=== PATIENT | male | born 1970 | race Caucasian/White ===

== ENCOUNTER → 2016-12-13 | Outpatient (CLI) | payer MEDICARE, OTHER | LOC: RAD 14:30 | PROVIDERS: ATTEND Urology | DX: C64.1 Malignant neoplasm of right kidney, except renal pelvis (principal) | CPT/HCPCS: 71260; 74160; 82565 ==

== ENCOUNTER 2017-12-05 14:49 | Inpatient (IN) | payer BC, MEDICARE ==
--- NOTE | 2017-12-05 16:28 | ER Document Report ---
ED Medical Screen (RME) - General Chief Complaint: Shortness Of Breath Stated Complaint: SHORTNESS OF BREATH Time Seen by Provider: 12/05/17 16:26 Notes: Patient states he has a history of thyroid tumors and COPD requiring home O2. He states for 2-3 days he has had increased shortness of breath and neck and face swelling. He denies any known injuries. TRAVEL OUTSIDE OF THE [place] IN LAST 30 DAYS: No - Related Data Allergies/Adverse Reactions: morphine [Morphine] Allergy (Verified 02/10/15 11:36) Past Medical History - Past Medical History Cardiac Medical History: Reports: Hx Hypercholesterolemia, Hx Hypertension Pulmonary Medical History: Reports: Hx COPD Neurological Medical History: Reports: Hx Migraine. Denies: Hx Seizures Endocrine Medical History: Reports: Hx Diabetes Mellitus Type 2 Renal/ Medical History: Denies: Hx Peritoneal Dialysis Psychiatric Medical History: Reports: Hx Depression Past Surgical History: Reports: Hx Abdominal Surgery, Hx Kidney (Renal Surgery) - right nephrectomy 2011, Hx Orthopedic Surgery - Neck, thoracic and lumbar fusions - Immunizations Hx Diphtheria, Pertussis, Tetanus Vaccination: Yes Physical Exam - Vital signs Vitals: Temp Pulse Resp BP Pulse Ox 98.4 F 90 14 128/83 H 100 12/05/17 14:53 12/05/17 14:53 12/05/17 14:53 12/05/17 14:53 12/05/17 14:53 Course - Vital Signs Vital signs: Temp Pulse Resp BP Pulse Ox 98.4 F 90 14 128/83 H 100 12/05/17 14:53 12/05/17 14:53 12/05/17 14:53 12/05/17 14:53 12/05/17 14:53
--- NOTE | 2017-12-05 17:11 | RADIOLOGY REPORT (SQ) ---
EXAM DESCRIPTION: CHEST 2 VIEWS COMPLETED DATE/TIME: 12/05/2017 4:59 pm REASON FOR STUDY: sob COMPARISON: None. NUMBER OF VIEWS: Two views. TECHNIQUE: Frontal and lateral radiographic views of the chest acquired. LIMITATIONS: None. FINDINGS: LUNGS AND PLEURA: No opacities, masses or pneumothorax. No pleural effusion. MEDIASTINUM AND HILAR STRUCTURES: No masses or contour abnormality. HEART AND VASCULAR STRUCTURES: Cardiac enlargement. Vascular congestion. BONES: No acute findings. HARDWARE: None in the chest. OTHER: No other significant finding. IMPRESSION: CARDIAC ENLARGEMENT. VASCULAR CONGESTION. TECHNICAL DOCUMENTATION: JOB ID: [id number] [employer]- All Rights Reserved Reading location - IP/workstation name: [email or web address]
[2017-12-05 18:05] LABS: ABSOLUTE EOSINOPHILS # (AUTO) 0.2 10^3/uL (0.0-0.6); ABSOLUTE LYMPHOCYTES (AUTO) 2.1 10^3/uL (0.5-4.7); ABSOLUTE MONOCYTES (AUTO) 0.9 10^3/uL (0.1-1.4); ABSOLUTE NEUT (AUTO) 6.1 10^3/uL (1.7-8.2); BASOPHILS % (AUTO) 0.3 % (0-2); EOSINOPHILS % (AUTO) 2.3 % (0-6); HEMATOCRIT 43.1 % (37.9-51.0); HEMOGLOBIN 15.3 g/dL (13.5-17.0); LYMPHOCYTES % (AUTO) 22.7 % (13-45); MEAN CORPUSCULAR HEMOGLOBIN 32.7 pg (27.0-33.4); MEAN CORPUSCULAR HGB CONC 35.4 g/dL (32.0-36.0); MEAN CORPUSCULAR VOLUME 92 fl (80-97); MONOCYTES % (AUTO) 9.4 % (3-13); PLATELET COUNT 203 10^3/uL (150-450); RED BLOOD COUNT 4.67 10^6/uL (4.35-5.55); SEGMENTED NEUTROPHILS % (AUTO) 65.3 % (42-78); TOTAL CELLS COUNTED % (AUTO) 100 %; WHITE BLOOD COUNT 9.3 10^3/uL (4.0-10.5)
[2017-12-05 18:25] LABS: ALANINE AMINOTRANSFERASE 36 U/L (21-72); ALBUMIN 4.5 g/dL (3.5-5.0); ALKALINE PHOSPHATASE 58 U/L (38-126); ANION GAP 11 (5-19); ASPARTATE AMINO TRANSFERASE 28 U/L (17-59); BILIRUBIN,DIRECT 0.4 mg/dL (0.0-0.4); BILIRUBIN,TOTAL 0.6 mg/dL (0.2-1.3); BLOOD UREA NITROGEN 14 mg/dL (7-20); CALCIUM 9.8 mg/dL (8.4-10.2); CARBON DIOXIDE 35 mmol/L (22-30); CHLORIDE 96 mmol/L (98-107); GLUCOSE 96 mg/dL (75-110); POTASSIUM 3.7 mmol/L (3.6-5.0); TOTAL PROTEIN 7.8 g/dL (6.3-8.2)
--- NOTE | 2017-12-05 19:35 | EKG REPORT ---
SEVERITY:- ABNORMAL ECG - ATRIAL FIBRILLATION, V-RATE 69-144 : Confirmed by: Giorgio Bro MD 05-Dec-2017 19:34:57
[2017-12-05] MEDS ORDERED: FUROSEMIDE 40 MG TABLET PO ONE (19:45)
[2017-12-05 20:20] LABS: FREE T3 4.59 pg/mL (2.77-5.27); FREE T4 (FREE THYROXINE) 1.41 ng/dL (0.78-2.19)
--- NOTE | 2017-12-05 20:36 | RADIOLOGY REPORT (SQ) ---
EXAM DESCRIPTION: CT SOFT TISSUE NECK WITHOUT COMPLETED DATE/TIME: 12/05/2017 8:21 pm REASON FOR STUDY: goiter, painful swallowing COMPARISON: None. TECHNIQUE: Noncontrast scanning from skull base through lung apices with review of bone, soft tissue and lung windows. Reconstructed coronal and sagittal MPR images reviewed. All images stored on PAC S. All CT scanners at this facility use dose modulation, iterative reconstruction, and/or weight based d osing when appropriate to reduce radiation dose to as low as reasonably achievable (ALARA). [facility]: Dose Right [facility]: CareDose [facility]: Dose Right [facility]: Teradose 4D [facility]: [employer] RADIATION DOSE: CT Rad equipment meets quality standard of care and radiation dose reduction techniq ues were employed. CTDIvol: 17.2 mGy. DLP: 709 mGy-cm. mGy. LIMITATIONS: None. FINDINGS: SKULL BASE: Intact. MAJOR SALIVARY GLANDS: No solid or cystic masses. No inflammatory changes. LYMPHADENOPATHY: No adenopathy. MUCOSAL MASSES OR ASYMMETRY: No mucosal masses or asymmetry. LARYNX/CORDS: No abnormal findings. LUNG APICES: Clear. BONES: Postsurgical changes. THYROID: Enlarged thyroid gland with substernal component. No airway compromise. PARANASAL SINUSES: Clear. OTHER: No other significant finding. IMPRESSION: Enlarged thyroid gland. No evidence for airway compromise. TECHNICAL DOCUMENTATION: JOB ID: [id number] Quality ID # [id number]: Final reports with documentation of one or more dose reduction techniques (e.g., Au tomated exposure control, adjustment of the mA and/or kV according to patient size, use of iterative reconstruction technique) 2010 [employer]- All Rights Reserved Reading location - IP/workstation name: [email or web address]
[2017-12-05 20:45] LABS: VENOUS BLOOD BASE EXCESS 4.6 mmol/L; VENOUS BLOOD HCO3 31.5 mmol/L (20-32); VENOUS BLOOD PH 7.38 (7.30-7.42)
[2017-12-05 21:13] LABS: THYROID STIMULATING HORMONE 1.01 uIU/mL (0.47-4.68)
--- NOTE | 2017-12-05 23:16 | ER Document Report ---
ED General - General Chief Complaint: Shortness Of Breath Stated Complaint: SHORTNESS OF BREATH Time Seen by Provider: 12/05/17 16:26 Notes: Patient is a 47-year-old male who presents emergency chief complaint of shortness of breath. Patient states that he has been short of breath every day for the past 2 months but he feels that it is gotten worse over the past couple of days. States he feels more short of breath with palpitations on exertion. Denies any orthopnea. Denies any history of arrhythmias. Patient with a past medical history significant for COPD on 3 L nasal cannula, hypertension, goiter , kidney cancer of the right upper pole status post resection. Patient also complaining of neck discomfort. Patient states that he feels like he cannot swallow, tolerating PO secretions, fluids and solids. Follow with ENT in [place]. PCP: nataliia Singer Neph: mehreen Cardiology: dave TRAVEL OUTSIDE OF THE [place] IN LAST 30 DAYS: No - Related Data Allergies/Adverse Reactions: morphine [Morphine] Allergy (Verified 02/10/15 11:36) Past Medical History - Social History Smoking Status: Never Smoker Family History: Reviewed & Not Pertinent Patient has suicidal ideation: No Patient has homicidal ideation: No - Past Medical History Cardiac Medical History: Reports: Hx Hypercholesterolemia, Hx Hypertension Pulmonary Medical History: Reports: Hx COPD Neurological Medical History: Reports: Hx Migraine. Denies: Hx Seizures Endocrine Medical History: Reports: Hx Diabetes Mellitus Type 2 Renal/ Medical History: Denies: Hx Peritoneal Dialysis Psychiatric Medical History: Reports: Hx Depression Past Surgical History: Reports: Hx Abdominal Surgery, Hx Kidney (Renal Surgery) - right nephrectomy 2011, Hx Orthopedic Surgery - Neck, thoracic and lumbar fusions - Immunizations Hx Diphtheria, Pertussis, Tetanus Vaccination: Yes Review of Systems - Review of Systems Constitutional: Weight gain EENT: See HPI Cardiovascular: See HPI Respiratory: See HPI Gastrointestinal: No symptoms reported Genitourinary: No symptoms reported Musculoskeletal: No symptoms reported Neurological/Psychological: No symptoms reported -: Yes All other systems reviewed and negative Physical Exam - Vital signs Vitals: Temp Pulse Resp BP Pulse Ox 98.4 F 90 14 128/83 H 100 12/05/17 14:53 12/05/17 14:53 12/05/17 14:53 12/05/17 14:53 12/05/17 14:53 - Notes Notes: PHYSICAL EXAM GENERAL: Alert, interacts well. HEAD: Normocephalic, atraumatic. EYES: Pupils equal, round, and reactive to light. Extraocular movements intact. ENT: Oral mucosa moist, tongue midline. NECK: Full range of motion. Supple. Trachea midline. LUNGS: Clear to auscultation bilaterally, no wheezes, rales, or rhonchi. No respiratory distress. HEART: Regular rate wiht irregular rhythm. No murmurs, gallops, or rubs. ABDOMEN: Soft, obese, nondistended, nontender. No guarding, rebound, or rigidity.. Bowel sounds present in all 4 quadrants. EXTREMITIES: Moves all 4 extremities spontaneously. Bilateral edema due to venous stasis, radial and dorsalis pedis pulses 2/4 bilaterally. No cyanosis. NEUROLOGICAL: Alert and oriented x4. Normal speech. PSYCH: Normal affect, normal mood. SKIN: Warm, dry, normal turgor. No rashes or lesions noted. Course - Re-evaluation Re-evalutation: 12/05/17 23:28 Patient is a 47-year-old male who is hemodynamically stable, no acute distress and afebrile. EKG shows evidence of new onset atrial fibrillation. Per chart review not able to identify any other previous diagnoses for atrial fibrillation. Patient at rest is not tachycardic maintaining a heart rate of 90s but when pushed ambulate he does become tachycardic with heart rate of 160s and becomes dyspneic on exertion. Patient without any evidence of chest pain. Low clinical suspicion for ACS given clinical history, exam, EKG without ST elevations or depressions, and negative initial troponin. HEART score less than or equal to 3. PE also seems unlikely given length of clinical history, Well's score of 0. CXR without evidence of pneumothorax or pneumonia. No widened mediastinum. Patient will be admitted for new onset atrial fibrillation to Dr Bradley - Vital Signs Vital signs: Temp Pulse Resp BP Pulse Ox 98.4 F 90 16 154/87 H 97 12/05/17 14:53 12/05/17 14:53 12/05/17 21:29 12/05/17 20:02 12/05/17 20:03 - Laboratory Result Diagrams: 12/05/17 17:40 12/05/17 17:40 Laboratory results interpreted by me: 12/05/17 12/05/17 17:40 17:40 Chloride 96 L Carbon Dioxide 35 H NT-Pro-B Natriuret Pep 955 H - Diagnostic Test Radiology reviewed: Image reviewed, Reports reviewed - EKG Interpretation by Me Rate: Normal Rhythm: A.Fib When compared to previous EKG there are: Changes noted Discharge - Discharge Clinical Impression: Morbid obesity Atrial fibrillation Qualifiers: Atrial fibrillation type: unspecified Qualified Code(s): I48.91 - Unspecified atrial fibrillation Condition: Stable Disposition: ADMITTED INPATIENT Admitting Provider: Hospitalist Unit Admitted: Telemetry Referrals: NATALIIA SINGER MD [Primary Care Provider] - Follow up as needed
[2017-12-05] MEDS ORDERED: PROMETHAZINE HCL INJ 25 MG/1 ML VIAL IV PRN (23:21)
[2017-12-05] MEDS ORDERED: ALBUTEROL SULFATE 0.083% NEB 2.5 MG/3 ML AMPUL NEB PRN (23:21)
[2017-12-05] MEDS ORDERED: DILTIAZEM HCL/D5W 125 MG/125 ML RTUINJ IV ONE (23:56)
[2017-12-06] MEDS: ACETAMINOPHEN 325 MG TABLET PO PRN ×4 (00:05→20:18)
[2017-12-06] MEDS ORDERED: LORAZEPAM 0.5 MG TABLET PO ONE (00:30)
[2017-12-06] MEDS ORDERED: TIZANIDINE HCL 4 MG TABLET PO ONE (00:30)
[2017-12-06] MEDS ORDERED: OXYCODONE HCL IR 5 MG TABLET PO ONE (00:30)
[2017-12-06] MEDS ORDERED: FUROSEMIDE INJ/PF 40 MG/4 ML SDV IV ONE (01:00)
--- NOTE | 2017-12-06 02:14 | PDOC H&P ---
History of Present Illness Admission Date/PCP: CARSON SINGER MD Patient complains of: Intermittent chest pain and worsening shortness of breath for the last 4 days. He was in A. fib with RVR with HR up to 150s while in the ED. History of Present Illness: CATHERINE NOVOA is a 47 year old morbidly obese male with history of chronic respiratory failure/COPD (on 3 L home oxygen), obstructive sleep apnea (unable to tolerate CPAP), renal carcinoma (post partial right nephrectomy), hypertension and chronic back/neck pain (opioids dependent) was admitted with above-mentioned complaints. Some of the history was obtained from his at bedside. The patient complains of intermittent chest pain which he describes as pressure- like/stabbing, nonradiating and lasting for few minutes. The last time he had chest pain was at 4 PM prior to coming to the hospital. There were no alleviating or relieving factors. The pain was associated with shortness of breath, palpitations, diaphoresis and presyncope but no nausea or vomiting. And according to his , the patient has been having increased leg swelling for the last month or so (left more than right). He has two-pillow orthopnea, PND and his exercise tolerance is very limited by his shortness of breath. There was no report of any fever or chills but he has been complaining of nonproductive cough, no sick contact. The patient apparently follows with Dr. Bro of cardiology. He is scheduled to have an echocardiogram as outpatient for further evaluation of his worsening shortness of breath. He had a Holter monitor on 07/07/2016 assess PVCs. It only showed PACs/PVCs but no atrial tachycardia or A. fib. In the ED, his temperature was 98.4, heart rate 90 (up to 150s), respiratory rate 14, blood pressure 128/83 with oxygen saturation of 100% on 3 L nasal cannula. His WBC was 9.3 with hemoglobin of 15.3. His initial troponin was negative and his proBNP was 955. A CXR was done which showed vascular congestion. He also had a CAT scan of his neck which showed thyromegaly with no airway compromise. He received 40 mg oral Lasix 1, 15 mg IV Cardizem and he was started on Cardizem drip at 5 mg/h. Past Medical History Medical History: Other - According to the patient and based on previous records. Cardiac Medical History: Reports: Hyperlipidema, Hypertension Pulmonary Medical History: Reports: Chronic Obstructive Pulmonary Disease (COPD ) - On 3 L home oxygen., Sleep Apnea - To tolerate CPAP. Neurological Medical History: Reports: Migraine Denies: Seizures Malignancy Medical History: Reports: Renal (Kidney) Cancer Psychiatric Medical History: Reports: Depression Hematology: Denies: Anemia Past Surgical History Past Surgical History: Reports: Orthopedic Surgery - cervical surgery x1, thoracic and lumbar fusions x3., Other - Right partial nephrectomy (cancer). Social History Smoking Status: Never Smoker Frequency of Alcohol Use: None Hx Recreational Drug Use: No - Advance Directive Resuscitation Status: Full Code Family History Parental Family History Reviewed: Yes - Mother: CHF and diabetes Children Family History Reviewed: No Sibling(s) Family History Reviewed.: Yes Medication/Allergy Home Medications: Fluoxetine HCl [Prozac 20 mg Capsule] 40 mg PO DAILY 11/06/13 Lorazepam 2 mg PO BID 11/06/13 Quetiapine Fumarate [Seroquel] 100 mg PO DAILY 11/06/13 Amlodipine Besylate [Norvasc 10 mg Tablet] 10 mg PO DAILY 05/03/14 Metoprolol Tartrate [Lopressor 50 mg Tablet] 100 mg PO DAILY 05/03/14 Valsartan [Diovan] 320 mg PO DAILY 05/03/14 Amitriptyline HCl [Elavil 50 Mg Tablet] 50 mg PO BID 02/04/15 Tapentadol HCl [Nucynta] 75 mg PO BID 02/04/15 Fenofibrate 160 mg PO DAILY 04/29/15 Tapentadol HCl [Nucynta ER] 100 mg PO BID 04/29/15 Tizanidine HCl 8 mg PO QAM 04/29/15 Tizanidine HCl [Zanaflex] 12 mg PO QHS 04/29/15 Allergies/Adverse Reactions: morphine [Morphine] Allergy (Verified 02/10/15 11:36) Review of Systems ROS unobtainable: Other - Pertinent positives and negatives as per HPI. The patient denies any abdominal pain or diarrhea but complains of chronic constipation. He also denies any dysuria or hematuria but complains of urgency. He also complains of generalized weakness especially arms more than legs. He is able to ambulate independently. Physical Exam Vital Signs: Temp Pulse Resp BP Pulse Ox 98.4 F 90 16 154/87 H 97 12/05/17 14:53 12/05/17 14:53 12/05/17 21:29 12/05/17 20:02 12/05/17 20:03 Intake & Output 12/04/17 12/05/17 12/06/17 06:59 06:59 06:59 Weight 148 kg General appearance: PRESENT: no acute distress, obese, well-developed, well- nourished Head exam: PRESENT: atraumatic, normocephalic Eye exam: PRESENT: PERRLA. ABSENT: nystagmus Mouth exam: PRESENT: moist, neck supple Neck exam: PRESENT: full ROM, thyromegaly. ABSENT: JVD Respiratory exam: PRESENT: decreased breath sounds, rales. ABSENT: rhonchi, wheezes Cardiovascular exam: PRESENT: irregular rhythm, +S1, +S2, tachycardia Pulses: PRESENT: normal dorsalis pedis pul GI/Abdominal exam: PRESENT: distended, normal bowel sounds, soft. ABSENT: rebound, tenderness Rectal exam: PRESENT: deferred Extremities exam: PRESENT: pedal edema, +2 edema Musculoskeletal exam: PRESENT: other - Able to move all 4 extremities. Neurological exam: PRESENT: alert, altered, awake, CN II-XII grossly intact - except CNIII.. ABSENT: motor sensory deficit Skin exam: PRESENT: erythema - Bilateral legs erythema from ankle up to knees bilaterally., intact, warm. ABSENT: rash Results Laboratory Results: 12/05/17 17:40 12/05/17 17:40 12/05/17 12/05/17 12/05/17 17:40 17:40 17:40 WBC 9.3 RBC 4.67 Hgb 15.3 Hct 43.1 MCV 92 MCH 32.7 MCHC 35.4 RDW 13.0 Plt Count 203 Seg Neutrophils % 65.3 Lymphocytes % 22.7 Monocytes % 9.4 Eosinophils % 2.3 Basophils % 0.3 Absolute Neutrophils 6.1 Absolute Lymphocytes 2.1 Absolute Monocytes 0.9 Absolute Eosinophils 0.2 Absolute Basophils 0.0 VBG pH VBG pCO2 VBG HCO3 VBG Base Excess Sodium 142.0 Potassium 3.7 Chloride 96 L Carbon Dioxide 35 H Anion Gap 11 BUN 14 Creatinine 1.11 Est GFR ( Amer) > 60 Est GFR (Non-Af Amer) > 60 Glucose 96 Calcium 9.8 Total Bilirubin 0.6 AST 28 ALT 36 Alkaline Phosphatase 58 Total Protein 7.8 Albumin 4.5 TSH 1.01 Free T4 1.41 Free T3 pg/mL 4.59 12/05/17 20:30 WBC RBC Hgb Hct MCV MCH MCHC RDW Plt Count Seg Neutrophils % Lymphocytes % Monocytes % Eosinophils % Basophils % Absolute Neutrophils Absolute Lymphocytes Absolute Monocytes Absolute Eosinophils Absolute Basophils VBG pH 7.38 VBG pCO2 55.0 VBG HCO3 31.5 VBG Base Excess 4.6 Sodium Potassium Chloride Carbon Dioxide Anion Gap BUN Creatinine Est GFR ( Amer) Est GFR (Non-Af Amer) Glucose Calcium Total Bilirubin AST ALT Alkaline Phosphatase Total Protein Albumin TSH Free T4 Free T3 pg/mL 12/05/17 12/05/17 12/05/17 17:40 17:40 21:30 Troponin I < 0.012 < 0.012 NT-Pro-B Natriuret Pep 955 H EKG Comments: Twelve-lead EKG, A. fib, ventricular rate 95, axis 0, QTC prolongation, no acute changes. Compared to a previous twelve-lead EKG done on 04/29/2015, sinus rhythm, ventricular rate 95, [place] 0, first-degree AV block, no acute changes. Impressions: Chest X-Ray 12/05/17 16:26 IMPRESSION: CARDIAC ENLARGEMENT. VASCULAR CONGESTION. Soft Tissue Neck CT 12/05/17 19:49 IMPRESSION: Enlarged thyroid gland. No evidence for airway compromise. Assessment & Plan - Diagnosis (1) Acute CHF (congestive heart failure) Qualifiers: Heart failure type: unspecified Qualified Code(s): I50.9 - Heart failure, unspecified Is this a current diagnosis for this admission?: Yes Plan: Will cycle cardiac enzymes and check d-dimer and echocardiogram. The patient's last echocardiogram done on 07/07/2016 showed mild and mild concentric left ventricular hypertrophy with normal LVEF, no diastolic dysfunction. He also had a Holter monitor which only showed PACs/PVCs (no A. fib). Will continue 60 mg IV Lasix BID with strict I's and O's. Will order CAT scan angiogram of the chest if his d-dimer is positive and will also check bilateral lower extremity venous Dopplers to rule out DVT. (2) Atrial fibrillation with RVR Is this a current diagnosis for this admission?: Yes Plan: New and/or paroxysmal in the setting of CHF exacerbation. His [id number] - Vasc score is 2. Will continue Cardizem drip. He may need to be anticoagulated. Of note, his neck CAT scan showed thyromegaly for which he was seen by endocrinology in [facility] per his but no thyroid biopsy was done. Will check TSH. Further management as detailed above. (3) Essential hypertension Is this a current diagnosis for this admission?: Yes Plan: Controlled. The patient is currently on Cardizem drip. (4) Chronic respiratory failure Qualifiers: Respiratory failure complication: hypoxia and hypercapnia Qualified Code(s) : J96.11 - Chronic respiratory failure with hypoxia; J96.12 - Chronic respiratory failure with hypercapnia; J96.12 - Chronic respiratory failure with hypercapnia; J96.12 - Chronic respiratory failure with hypercapnia Is this a current diagnosis for this admission?: Yes Plan: /COPD. He is not on any inhalers at home. Further assessment with PFTs can be done as outpatient once acute illness resolved. (5) Obstructive sleep apnea Is this a current diagnosis for this admission?: No Plan: Unable to tolerate CPAP. - Time Time Spent: Greater than 70 Minutes - Inpatient Certification Based on my medical assessment, after consideration of the patient's comorbidities, presenting symptoms, or acuity I expect that the services needed warrant INPATIENT care.: Yes I certify that my determination is in accordance with my understanding of Medicare's requirements for reasonable and necessary INPATIENT services [42 CFR 412.3e].: Yes
--- NOTE | 2017-12-06 03:35 | RADIOLOGY REPORT (SQ) ---
EXAM DESCRIPTION: CTA CHEST CLINICAL HISTORY: 47 years Male, Afib with RVR/SOB, DDIMER 0.63 COMPARISON: 07/02/2016. CR, 12/05/2017. Thyroid ultrasound report, 11/10/2015. TECHNIQUE: IV contrast. Multiplanar reformat. This exam was performed according to our departmental dose-optimization program, which includes automated exposure control, adjustment of the mA and/or kV according to patient size and/or use of iterative reconstruction technique. Limitation: As below. FINDINGS: No evidence of pulmonary embolus; suboptimal pulmonary arterial enhancement measures 144 HU. No right ventricular strain. Partially imaged left inferior thyroid enlargement/lesion measures at least 3.4 x 5.1 cm asymmetrically enlarged compared to the right possibly increased compared with prior ultrasound and CT reports from 2016. Current thyroid sonogram recommended. Small bilateral pulmonary calcified granulomata. Cervical hardware fusion. 3.8 cm subpleural emphysematous cyst at the right lung base. 1.1 cm right adrenal adenoma. Axillae, mediastinum, lungs, airway, lymphatics, heart, vasculature, upper abdomen, and musculoskeleton appear otherwise unremarkable. Impression: 1. Possible interval left thyroid enlargement. Thyroid sonogram recommended. 2. No acute cardiopulmonary findings. No pulmonary embolus. Limitation.
[2017-12-06 04:21] LABS: ANION GAP 17 (5-19); BLOOD UREA NITROGEN 16 mg/dL (7-20); CALCIUM 9.6 mg/dL (8.4-10.2); CARBON DIOXIDE 30 mmol/L (22-30); CHLORIDE 96 mmol/L (98-107); CHOLESTEROL 230.15 mg/dL (0-200); GLUCOSE 153 mg/dL (75-110); POTASSIUM 3.6 mmol/L (3.6-5.0); SODIUM 143.4 mmol/L (137-145); TRIGLYCERIDES 185 mg/dL (<150)
[2017-12-06] MEDS ORDERED: NORMAL SALINE 1000 ML 250 ML IV ONE ×2 (04:30→05:37)
[2017-12-06 04:31] LABS: DIRECT LDL 147 mg/dL (<100)
[2017-12-06] MEDS ORDERED: DEXTROSE 5%-WATER 250 ML with NOREPINEPHRINE BITARTRATE 4 MG IV PRN ×2 (05:47)
[2017-12-06] MEDS ORDERED: NOREPINEPHRINE BITARTRATE INJ/PF 4 MG/4 ML SDV IV ONE (05:52)
[2017-12-06] MEDS ORDERED: FUROSEMIDE INJ/PF 20 MG/2 ML SDV IV SCH (06:00)
[2017-12-06] MEDS ORDERED: FUROSEMIDE INJ/PF 40 MG/4 ML SDV IV SCH (06:00)
[2017-12-06] MEDS: LORAZEPAM 0.5 MG TABLET PO SCH ×3 (07:23→22:29)
[2017-12-06] MEDS: HEPARIN SOD (PORCINE) 5,000 UNIT/ML 1 ML SYRINGE SUBCUT SCH ×3 (07:26→22:29)
--- NOTE | 2017-12-06 07:45 | EKG REPORT ---
SEVERITY:- ABNORMAL ECG - ATRIAL FIBRILLATION, V-RATE 75-130 VENTRICULAR PREMATURE COMPLEX NONSPECIFIC T ABNORMALITIES, INFERIOR LEADS : Confirmed by: Giorgio Bro MD 06-Dec-2017 07:44:33
[2017-12-06] MEDS ORDERED: OXYCODONE HCL IR 5 MG TABLET PO SCH (10:00)
[2017-12-06] MEDS: FUROSEMIDE INJ/PF 40 MG/4 ML SDV IV SCH ×2 (10:11→17:21)
[2017-12-06] MEDS: TIZANIDINE HCL 4 MG TABLET PO SCH ×3 (10:11→17:21)
[2017-12-06] MEDS ORDERED: POTASSIUM CHLORIDE 10 MEQ TABLET.SA PO ONE (12:03)
--- NOTE | 2017-12-06 12:07 | PDOC PROGRESS REPORT ---
Subjective Progress Note for:: 12/06/17 Subjective:: The patient is resting in his bed. He was weaned off of his levo fed this morning and his Cardizem drip had been stopped. When I went in to see the patient his heart rate was fluctuating between the 120s in the 160s. We are going to cautiously try the Cardizem drip again. Otherwise he is doing well off of oxygen. His shortness of breath is improved. He has had no fever chills. He states that he does get chest pressure and pain when he gets up and ambulates but it does resolve with rest. He has had no nausea vomiting diaphoresis. No abdominal pain. He has not had a bowel movement yet this morning. No voiding complaints. Reason For Visit: A FIB WITH RVR/SOB. Physical Exam Vital Signs: Temp Pulse Resp BP Pulse Ox 98.4 F 90 14 108/65 97 12/05/17 14:53 12/05/17 14:53 12/06/17 11:15 12/06/17 11:15 12/06/17 11:15 Intake & Output 12/05/17 12/06/17 12/07/17 06:59 06:59 06:59 Output Total 1625 900 Balance -1625 -900 General appearance: PRESENT: no acute distress, morbidly obese, well-developed, well-nourished Head exam: PRESENT: atraumatic, normocephalic Mouth exam: PRESENT: moist, tongue midline Respiratory exam: PRESENT: clear to auscultation juan josé, other - He is diminished in the lower bases bilaterally. ABSENT: rales, rhonchi, wheezes Cardiovascular exam: PRESENT: RRR. ABSENT: diastolic murmur, rubs, systolic murmur GI/Abdominal exam: PRESENT: firm, normal bowel sounds, organolmegaly - I could not assess for organomegaly due to the patient's body habitus, other - His abdomen is morbidly obese.. ABSENT: distended, guarding, mass, rebound, tenderness Rectal exam: PRESENT: deferred Extremities exam: PRESENT: other - He has significant venous stasis changes to both of his bilateral lower extremities. There is no calf tenderness. He has significant pedal edema but it is not particularly Musculoskeletal exam: PRESENT: ambulatory - pitting. Neurological exam: PRESENT: alert, awake, oriented to person, oriented to place , oriented to time, oriented to situation, CN II-XII grossly intact. ABSENT: motor sensory deficit Skin exam: PRESENT: dry, intact, warm. ABSENT: cyanosis, rash Results Laboratory Results: 12/06/17 03:30 12/06/17 03:30 Sodium 143.4 Potassium 3.6 Chloride 96 L Carbon Dioxide 30 Anion Gap 17 BUN 16 Creatinine 1.18 Est GFR ( Amer) > 60 Est GFR (Non-Af Amer) > 60 Glucose 153 H Calcium 9.6 Magnesium 1.5 L Triglycerides 185 H Cholesterol 230.15 H LDL Cholesterol Direct 147 H VLDL Cholesterol 37.0 H HDL Cholesterol 32 L 12/06/17 03:30 Troponin I < 0.012 Impressions: Chest X-Ray 12/05/17 16:26 IMPRESSION: CARDIAC ENLARGEMENT. VASCULAR CONGESTION. Soft Tissue Neck CT 12/05/17 19:49 IMPRESSION: Enlarged thyroid gland. No evidence for airway compromise. Assessment & Plan - Diagnosis (1) Atrial fibrillation with RVR Is this a current diagnosis for this admission?: Yes Plan: We are going to cautiously place him back on a Cardizem drip this morning. We will keep a close eye on his blood pressure. He has been weaned off his Levophed at this point. Cardiology has been consulted. We look forward to their recommendations. In the meantime he has hypomagnesemia and going to replete with 3 g of magnesium sulfate. I would like to keep his magnesium level above 2. His potassium is 3.6. I would like to keep it above 4. He will be given a one-time dose of 40 mEq of potassium as well. (2) Acute CHF (congestive heart failure) Qualifiers: Heart failure type: unspecified Qualified Code(s): I50.9 - Heart failure, unspecified Is this a current diagnosis for this admission?: Yes Plan: I suspect the patient has some right-sided heart failure issues. He has known untreated obstructive sleep apnea and states that he just cannot tolerate his mask. He had an echocardiogram in 2016 which revealed normal LV function. No evidence of diastolic dysfunction at that time. He was noted to have mild aortic stenosis as well as mild pulmonary hypertension which I suspect is gotten worse. I will hold off on further diuresis right now as he does not sound horrible on exam. I do not want to have to put him back on pressors. I have consulted Dr. Pena for his recommendations and a 2D echocardiogram has been ordered. (3) Hypotension Is this a current diagnosis for this admission?: Yes Plan: The patient was hypotensive requiring pressors which have since been weaned off. Currently his diastolic blood pressure is quite high. He is being placed back on his Cardizem drip and the nurse has an order to restart his levophed if he should become hypotensive. Cardiology has been consulted (4) Pulmonary hypertension Is this a current diagnosis for this admission?: Yes Plan: The patient had mild pulmonary hypertension on echocardiogram in 2016. This could be contributing to his shortness of breath. His obstructive sleep apnea is not treated. 2D echocardiogram has been ordered. (5) Aortic stenosis Is this a current diagnosis for this admission?: Yes Plan: Per echocardiogram in 2016 the patient had mild aortic stenosis. This is somewhat concerning with his hypertensive picture. Repeat cardiac echo has been ordered and Dr. Pena has been consulted (6) Hypertensive emergency Is this a current diagnosis for this admission?: Yes Plan: Possibly contributing to his CHF. Blood pressures were as high as 183/152. After being started on his Cardizem drip and diuresed with IV Lasix he then became hypotensive. He seems to have quite labile blood pressure at this point. (7) Obstructive sleep apnea Is this a current diagnosis for this admission?: Yes Plan: He states he does not tolerate his mask. I have asked the to bring in his machine so that we can find out what his settings were. I will have respiratory therapy try to work with the patient while he is here in the hospital to get him to tolerate his CPAP better. (8) Thyroid nodule Is this a current diagnosis for this admission?: Yes Plan: Noted on imaging studies. I am not sure whether this could be contributing to his tachycardia. Thyroid function tests are normal. We will obtain an ultrasound of the thyroid for further evaluation. (9) Morbid obesity Is this a current diagnosis for this admission?: Yes Plan: Dietary discretion is advised (10) Dyslipidemia Is this a current diagnosis for this admission?: Yes Plan: I will start the patient on a low-dose statin medication. (11) Opiate dependence, continuous Is this a current diagnosis for this admission?: Yes Plan: The patient takes 10 mg of oxycodone at home every 8 hours on a scheduled basis. We will continue his home regimen here in the hospital. I am not going to escalate it. He also is on a Butrans patch which will be continued as well (12) Chronic prescription benzodiazepine use Is this a current diagnosis for this admission?: Yes Plan: He will continue his home dose of lorazepam (13) Hypomagnesemia Is this a current diagnosis for this admission?: Yes Plan: Again this will be repleted with magnesium sulfate today. He will have a magnesium level drawn in the morning. - Time Time Spent with patient: 35 or more minutes - Inpatient Certification Medical Necessity: Need Close Monitoring Due to Risk of Patient Decompensation, Need For Continuous Telemetry Monitoring, Other - Inpatient hospitalization remains necessary. This patient has labile blood pressure. He may need to be placed back on pressors again. He continues to have atrial fibrillation with rapid ventricular response and we are going to place him back on a Cardizem drip. He needs evaluation by cardiology. I suspect he will be in the hospital for the next several days.
[2017-12-06] MEDS ORDERED: HYDRALAZINE HCL INJ/PF 20 MG/1 ML SDV IV PRN (12:12)
[2017-12-06 12:43] LABS: HEMATOCRIT 43.6 % (37.9-51.0); HEMOGLOBIN 15.2 g/dL (13.5-17.0); MEAN CORPUSCULAR HEMOGLOBIN 32.1 pg (27.0-33.4); MEAN CORPUSCULAR HGB CONC 34.9 g/dL (32.0-36.0); MEAN CORPUSCULAR VOLUME 92 fl (80-97); PLATELET COUNT 201 10^3/uL (150-450); RED BLOOD COUNT 4.74 10^6/uL (4.35-5.55); RED CELL DISTRIBUTION WIDTH 13.4 % (11.5-14.0); WHITE BLOOD COUNT 8.3 10^3/uL (4.0-10.5)
[2017-12-06] MEDS: MAGNESIUM SULFATE/D5W 1 GM/100 ML RTUPB IV SCH ×3 (13:03→16:16)
[2017-12-06] MEDS: OXYCODONE HCL IR 5 MG TABLET PO PRN (16:16)
[2017-12-06] MEDS: DILTIAZEM HCL/D5W 125 MG/125 ML RTUINJ IV PRN (16:43)
--- NOTE | 2017-12-06 20:22 | PDOC CONSULTATION ---
Consultation Consult Date: 12/06/17 Attending physician:: SILVIA CAGE Consult reason:: Atrial fibrillation History of Present Illness Admission Date/PCP: 12/05/17 23:28 CASRON SINGER MD Patient complains of: Shortness of breath, fatigue and tiredness History of Present Illness: CATHERINE NOVOA is a 47 year old morbidly obese male with history of chronic respiratory failure/COPD (on 3 L home oxygen), obstructive sleep apnea (unable to tolerate CPAP), renal carcinoma (post partial right nephrectomy), hypertension and chronic back/neck pain (opioids dependent) was admitted with above-mentioned complaints. Some of the history was obtained from his at bedside. The patient complains of intermittent chest pain which he describes as pressure- like/stabbing, nonradiating and lasting for few minutes. The last time he had chest pain was at 4 PM prior to coming to the hospital. There were no alleviating or relieving factors. The pain was associated with shortness of breath, palpitations, diaphoresis and presyncope but no nausea or vomiting. And according to his , the patient has been having increased leg swelling for the last month or so (left more than right). He has two-pillow orthopnea, PND and his exercise tolerance is very limited by his shortness of breath. There was no report of any fever or chills but he has been complaining of nonproductive cough, no sick contact. The patient apparently follows with Dr. Bro of cardiology. He is scheduled to have an echocardiogram as outpatient for further evaluation of his worsening shortness of breath. He had a Holter monitor on 07/07/2016 assess PVCs. It only showed PACs/PVCs but no atrial tachycardia or A. fib. In the ED, his temperature was 98.4, heart rate 90 (up to 150s), respiratory rate 14, blood pressure 128/83 with oxygen saturation of 100% on 3 L nasal cannula. His WBC was 9.3 with hemoglobin of 15.3. His initial troponin was negative and his proBNP was 955. A CXR was done which showed vascular congestion. He also had a CAT scan of his neck which showed thyromegaly with no airway compromise. He received 40 mg oral Lasix 1, 15 mg IV Cardizem and he was started on Cardizem drip at 5 mg/h. This history was reviewed and confirmed. Patient at this point denying any chest pain. Patient claims that after he was given certain medication to control his heart rate, he had transient drop in blood pressure. Patient was seen in the emergency room. Past Medical History Cardiac Medical History: Reports: Hyperlipidema, Hypertension Pulmonary Medical History: Reports: Chronic Obstructive Pulmonary Disease (COPD ) - On 3 L home oxygen., Sleep Apnea - To tolerate CPAP. Neurological Medical History: Reports: Migraine Denies: Seizures Endocrine Medical History: Reports: Diabetes Mellitus Type 2 Malignancy Medical History: Reports: Renal (Kidney) Cancer Psychiatric Medical History: Reports: Depression Hematology: Denies: Anemia Past Surgical History Past Surgical History: Reports: Orthopedic Surgery - cervical surgery x1, thoracic and lumbar fusions x3., Other - Right partial nephrectomy (cancer). Social History Information Source: Patient Smoking Status: Never Smoker Frequency of Alcohol Use: None Hx Recreational Drug Use: No - Advance Directive Resuscitation Status: Full Code Family History Family History: Hypertension Parental Family History Reviewed: Yes Children Family History Reviewed: Yes Sibling(s) Family History Reviewed.: Yes Medication/Allergy Home Medications: Buprenorphine [Butrans] 15 mcg TOP WE@0800 12/06/17 Chlorthalidone [Chlorthalidone 25 mg Tablet] 25 mg PO DAILY 12/06/17 Furosemide [Lasix 20 mg Tablet] 20 mg PO DAILY 12/06/17 Linaclotide [Linzess] 145 mcg PO DAILY 12/06/17 Lisinopril [Prinivil 40 mg Tablet] 40 mg PO DAILY 12/06/17 Lorazepam [Ativan 0.5 mg Tablet] 0.5 mg PO Q8HP PRN 12/06/17 Nifedipine [Nifedipine ER] 30 mg PO DAILY 12/06/17 Oxycodone HCl [Oxycodone HCl 10 MG Tablet] 10 mg PO Q8HP PRN 12/06/17 Tizanidine HCl [Zanaflex 4 mg Tablet] 4 mg PO Q8HP PRN 12/06/17 Allergies/Adverse Reactions: morphine [Morphine] Allergy (Verified 12/06/17 08:30) Review of Systems Review of Systems: Please see history of present illness and past medical history as wall. Constitutional: No fever or chills reported. Head : No recent chronic headaches, recent head injury. Eyes: No recent eye pain, diplopia, redness, discharge, acute visual changes. Ears: No recent chronic ear pain, acute hearing loss, ear discharge. Oral cavity: No recent ulcerations, bleeding, oral cavity discomfort. Neck: No recent acute neck pain reported. Hematologic: No recent easy bruising or bleeding. Lymphatic: No recent lymph node enlargement reported. Cardiovascular system review: See history of present illness. Respiratory system review: Cough with occasional wheezing described. No hemoptysis or blood clots in the lungs reported. Shortness of breath on exertion Gastrointestinal system review: Negative for any recent acute hematemesis, melena. Genitourinary system review: No recent acute or chronic hematuria, flank pain, UTI etc. reported. Skin system review: Negative for any recent abnormal bruising, no rash, no pruritus reported. Neurologic: No prior history of strokes, mini strokes, seizure disorder. Psychologic: No history of major psychosis or major depression reported. Musculoskeletal: Minor aches and pains reported. No acute joint swelling reported. Endocrine: No recent polyuria, polydipsia, recent heat or cold intolerance. Gives history of renal cancer and status post partial nephrectomy. Describes history of sleep apnea but not on CPAP therapy. Physical Exam Vital Signs: Temp Pulse Resp BP Pulse Ox 98.4 F 90 26 H 122/76 98 12/05/17 14:53 12/05/17 14:53 12/06/17 13:00 12/06/17 12:15 12/06/17 13:00 Intake & Output 12/05/17 12/06/17 12/07/17 06:59 06:59 06:59 Output Total 1625 1300 Balance -1625 -1300 Exam: GENERAL: well-nourished and in no acute distress. Alert and oriented x3 HEAD: Atraumatic, normocephalic. EYES: Pupils equal round and reactive to light, extraocular movements intact, sclera anicteric, conjunctiva are normal. ENT: TMs normal, nares patent, oropharynx clear without exudates. Moist mucous membranes. No oral ulcerations or bleeding gums noted NECK: supple without lymphadenopathy. Trachea is central. No cervical or axillary lymphadenopathy noted. Carotids are 2+, JVD WNL LUNGS: Respiration seems nonlabored, no significant accessory muscle action noted. Bibasilar fine crackles with few a scattered wheezes rales or rhonchi noted. No significant dullness noted on percussion. CHEST: Palpation of the chest wall shows no significant chest wall tenderness. HEART: [place] BUTTONER, No PSH, 1/6 ANDRES aortic area, 1/6 jeffery systolic murmur mitral area, no rubs, no gallops. ABDOMEN: Soft, no significant tenderness appreciated, normoactive bowel sounds. No guarding, no rebound. No rigidity noted . No masses appreciated. EXTREMITIES: Pedal pulses are 1-2+, no calf tenderness noted. No clubbing or cyanosis. 1+ pedal edema noted NEUROLOGICAL: Focused neurological exam showed no significant neurologic deficit. Normal speech, no focal weakness appreciated. PSYCH: Normal mood, normal affect. Judgment and insight within normal limits. SKIN: No significant ecchymosis, skin is noted to be warm. MUSCULOSKELETAL EXAM: No significant acute joint swelling noted. Results Laboratory Results: 12/06/17 12:25 12/06/17 03:30 12/06/17 12/06/17 03:30 12:25 WBC 8.3 RBC 4.74 Hgb 15.2 Hct 43.6 MCV 92 MCH 32.1 MCHC 34.9 RDW 13.4 Plt Count 201 Sodium 143.4 Potassium 3.6 Chloride 96 L Carbon Dioxide 30 Anion Gap 17 BUN 16 Creatinine 1.18 Est GFR ( Amer) > 60 Est GFR (Non-Af Amer) > 60 Glucose 153 H Calcium 9.6 Magnesium 1.5 L Triglycerides 185 H Cholesterol 230.15 H LDL Cholesterol Direct 147 H VLDL Cholesterol 37.0 H HDL Cholesterol 32 L 12/06/17 12/06/17 03:30 12:25 Troponin I < 0.012 < 0.012 EKG Comments: Atrial fibrillation, no acute ST-T wave changes noted. Heart rate noted to be 95 on the EKG. Impressions: Chest X-Ray 12/05/17 16:26 IMPRESSION: CARDIAC ENLARGEMENT. VASCULAR CONGESTION. Soft Tissue Neck CT 12/05/17 19:49 IMPRESSION: Enlarged thyroid gland. No evidence for airway compromise. Assessment & Plan - Diagnosis (1) Acute CHF (congestive heart failure) Qualifiers: Heart failure type: unspecified Qualified Code(s): I50.9 - Heart failure, unspecified Is this a current diagnosis for this admission?: Yes (2) Atrial fibrillation with RVR Is this a current diagnosis for this admission?: Yes (3) Chronic respiratory failure Qualifiers: Respiratory failure complication: hypoxia and hypercapnia Qualified Code(s) : J96.11 - Chronic respiratory failure with hypoxia; J96.12 - Chronic respiratory failure with hypercapnia; J96.12 - Chronic respiratory failure with hypercapnia; J96.12 - Chronic respiratory failure with hypercapnia Is this a current diagnosis for this admission?: Yes (4) Dyslipidemia Is this a current diagnosis for this admission?: Yes (5) Morbid obesity Is this a current diagnosis for this admission?: Yes (6) Obstructive sleep apnea Is this a current diagnosis for this admission?: Yes - Notes Notes: Acute congestive heart failure: Most likely related to diastolic dysfunction and being precipitated by atrial fibrillation. Chest x-ray does show mild cardiomegaly. A 2D echocardiogram will be important in further evaluation and management of CHF. This will be ordered. At this point agree with IV diuretics. Atrial fibrillation with rapid ventricular response: Agree with what controlled with either beta blockers or calcium channel lora such as Cardizem. May also use digoxin especially if hypotension is a problem. At this point recommend Lovenox or heparin for anticoagulation. Chronic anticoagulation to be decided based on 2D echo and further evaluation. Chronic respiratory failure: Patient seems to have this based on obesity hypoventilation and also severe sleep apnea syndrome which patient claims he is not being treated. Continue with oxygen supplementation. Patient claims he has oxygen at home. Dyslipidemia: Recommend statin therapy with LDL goal of 70 or less. Morbid obesity: Patient will benefit from significant weight loss. Obstructive sleep apnea: Patient will greatly benefit from therapy for obstructive sleep apnea. Patient may be able to be desensitized while in hospital towards CPAP therapy. - Time Time Spent: 30 to 50 Minutes - CODE STATUS was discussed, patient remains full code. Surrogate decision-maker unchanged. Multiple medical problems were addressed. More than 50% of the time spent coordinating care, discussing management plans with involved caregivers. Management plans discussed with involved personnels. Medical decision making was of moderate to high complexity , patient's has multiple comorbidities. Medications reviewed and adjusted accordingly: Yes
[2017-12-06] MEDS: ATORVASTATIN CALCIUM 40 MG TABLET PO SCH (22:29)
--- NOTE | 2017-12-06 22:31 | RADIOLOGY REPORT (SQ) ---
EXAM DESCRIPTION: U/S THYROID/SFT TISS HD NECK COMPLETED DATE/TIME: 12/06/2017 10:18 pm REASON FOR STUDY: thyroid nodule COMPARISON: 11/10/2015 TECHNIQUE: Dynamic and static cutler-scale images acquired of the thyroid gland. Selected additional c olor/power Doppler images recorded. All images stored to PACS. LIMITATIONS: Study is limited by patient's inability to lie completely flat or elevated his chin for long. FINDINGS: RIGHT LOBE: Normal size, 4.7 x 2.1 x 3.4 centimeters. Poorly seen. There is a 1.4 x 1.36 centimeter nodule that is predominantly solid. LEFT LOBE: Length measurement not recorded. Poorly seen. No definite masses are seen. ISTHMUS: Prominent. 7.4 millimeters. Homogeneous echotexture. No cystic or solid masses. OTHER: No other significant finding. IMPRESSION: There appears to be a nodule in the right lobe of the thyroid as described. This study is quite limited. TECHNICAL DOCUMENTATION: JOB ID: [id number] [employer]- All Rights Reserved Reading location - IP/workstation name: [email or web address]
[2017-12-07] MEDS: ACETAMINOPHEN 325 MG TABLET PO PRN ×2 (01:31→09:38)
[2017-12-07] MEDS: HEPARIN SOD (PORCINE) 5,000 UNIT/ML 1 ML SYRINGE SUBCUT SCH ×3 (05:28→22:22)
[2017-12-07] MEDS: DILTIAZEM HCL/D5W 125 MG/125 ML RTUINJ IV PRN ×2 (05:28→15:07)
[2017-12-07] MEDS: LORAZEPAM 0.5 MG TABLET PO SCH ×3 (05:28→22:22)
[2017-12-07] MEDS ORDERED: METOPROLOL TARTRATE PF/INJ 5 MG/5 ML SDV IV ONE (06:00)
[2017-12-07] MEDS ORDERED: BUPRENORPHINE 15 MCG TOP SCH ×2 (08:00)
[2017-12-07 08:47] LABS: ABSOLUTE EOSINOPHILS # (AUTO) 0.1 10^3/uL (0.0-0.6); ABSOLUTE LYMPHOCYTES (AUTO) 1.4 10^3/uL (0.5-4.7); ABSOLUTE MONOCYTES (AUTO) 0.6 10^3/uL (0.1-1.4); ABSOLUTE NEUT (AUTO) 5.4 10^3/uL (1.7-8.2); BASOPHILS % (AUTO) 0.2 % (0-2); HEMOGLOBIN 15.9 g/dL (13.5-17.0); LYMPHOCYTES % (AUTO) 18.4 % (13-45); MEAN CORPUSCULAR HEMOGLOBIN 32.2 pg (27.0-33.4); MEAN CORPUSCULAR HGB CONC 35.3 g/dL (32.0-36.0); MEAN CORPUSCULAR VOLUME 91 fl (80-97); MONOCYTES % (AUTO) 8.1 % (3-13); PLATELET COUNT 196 10^3/uL (150-450); RED BLOOD COUNT 4.93 10^6/uL (4.35-5.55); RED CELL DISTRIBUTION WIDTH 13.2 % (11.5-14.0); SEGMENTED NEUTROPHILS % (AUTO) 72.3 % (42-78); TOTAL CELLS COUNTED % (AUTO) 100 %; WHITE BLOOD COUNT 7.4 10^3/uL (4.0-10.5)
[2017-12-07 08:59] LABS: ANION GAP 14 (5-19); BLOOD UREA NITROGEN 15 mg/dL (7-20); CALCIUM 10.2 mg/dL (8.4-10.2); CARBON DIOXIDE 33 mmol/L (22-30); CHLORIDE 93 mmol/L (98-107); GLUCOSE 120 mg/dL (75-110); PHOSPHORUS 3.8 mg/dL (2.5-4.5); POTASSIUM 3.5 mmol/L (3.6-5.0); SODIUM 139.8 mmol/L (137-145)
[2017-12-07] MEDS: TIZANIDINE HCL 4 MG TABLET PO SCH ×3 (09:38→17:30)
[2017-12-07] MEDS: FUROSEMIDE INJ/PF 40 MG/4 ML SDV IV SCH ×2 (09:39→17:31)
[2017-12-07] MEDS ORDERED: (PENDING PHARMACY ID) (Linaclotide [Linzess] 145 MCG) PO SCH (10:00)
--- NOTE | 2017-12-07 12:22 | RADIOLOGY REPORT (SQ) ---
EXAM DESCRIPTION: VENOUS BILATERAL LOWER COMPLETED DATE/TIME: 12/07/2017 12:13 pm REASON FOR STUDY: b/l leg swelling. COMPARISON: None. TECHNIQUE: Dynamic and static cutler scale and color images acquired of both lower extremity venous sy stems. Selected spectral images acquired with additional compression and augmentation maneuvers. Imag es stored on PACS. LIMITATIONS: None. FINDINGS: RIGHT LEG COMMON FEMORAL AND FEMORAL: Normal phasicity, compression and augmentation. No visualized echogenic m aterial on cutler scale. No defects on color images. POPLITEAL: Normal compression and augmentation. No visualized echogenic material on cutler scale. No de fects on color images. CALF VESSELS: Normal compression and augmentation. No visualized echogenic material on cutler scale. No defects on color image. GSV AND SSV: Normal compression. No visualized echogenic material on cutler scale. No defects on color images. ANY DEEP VENOUS INSUFFICIENCY: Not evaluated. ANY EVIDENCE OF POPLITEAL CYST: No. OTHER: No other significant finding. LEFT LEG COMMON FEMORAL AND FEMORAL: Normal phasicity, compression and augmentation. No visualized echogenic m aterial on cutler scale. No defects on color images. POPLITEAL: Normal compression and augmentation. No visualized echogenic material on cutler scale. No de fects on color images. CALF VESSELS: Normal compression and augmentation. No visualized echogenic material on cutler scale. No defects on color images. GSV AND SSV: Normal compression. No visualized echogenic material on cutelr scale. No defects on color images. ANY DEEP VENOUS INSUFFICIENCY: Not evaluated. ANY EVIDENCE POPLITEAL CYST: No. OTHER: No other significant finding. IMPRESSION: NO EVIDENCE DVT OR SVT IN EITHER LEG. TECHNICAL DOCUMENTATION: JOB ID: [id number] [employer]- All Rights Reserved Reading location - IP/workstation name: [email or web address]
--- NOTE | 2017-12-07 14:32 | PDOC PROGRESS REPORT ---
Subjective Subjective:: The patient is a pleasant, morbidly obese 47-year-old male. His past medical history significant for chronic respiratory failure on 3 L of oxygen at home. He has known COPD, obstructive sleep apnea (not able to tolerate CPAP), renal cell carcinoma status post right nephrectomy, hypertension and chronic back and neck pain. He is opiate dependent. The patient presented to the emergency room with chest discomfort. He was also having shortness of breath and increased lower extremity edema. In the emergency room he was found to have evidence of atrial fibrillation with rapid ventricular response. He was found to have vascular congestion on his chest x-ray. A CT scan of his neck revealed thyromegaly with no airway compromise. He was referred for admission. The admitting physician diuresed him with IV Lasix and started him on a Cardizem drip. He then became significantly hypotensive and had to be placed on Levophed for a period of time. He was eventually fairly quickly weaned off of this and has been having continued issues with rapid rates and is still being maintained on a Cardizem drip. He has been seen by cardiology who is ordered a 2D echocardiogram. He had venous Dopplers of his lower extremities which were unremarkable. He is scheduled to have a stress test performed in the morning. Today when I saw him he states his biggest issue at this point is continued neck pain. He states that it is quite severe. He states he still gets short of breath when he gets up and tries to ambulate. He is still having heart palpitations as well as chest pressure and chest discomfort. He has had no nausea vomiting or diarrhea and he is tolerating his diet. He said no dysuria, frequency or hematuria. Reason For Visit: A FIB WITH RVR Physical Exam Vital Signs: Temp Pulse Resp BP Pulse Ox 98.5 F 114 H 16 140/87 H 99 12/07/17 11:49 12/07/17 12:48 12/07/17 12:48 12/07/17 11:49 12/07/17 11:49 Intake & Output 12/06/17 12/07/17 12/08/17 06:59 06:59 06:59 Intake Total 845 400 Output Total 1625 3850 1150 Balance -4203 -3000 -750 Weight 148 kg 148 kg General appearance: PRESENT: no acute distress, morbidly obese, well-developed, well-nourished Head exam: PRESENT: atraumatic, normocephalic Eye exam: PRESENT: conjunctiva pink, EOMI, PERRLA. ABSENT: scleral icterus Mouth exam: PRESENT: moist, tongue midline Respiratory exam: PRESENT: other - He is diminished in the lower bases bilaterally but otherwise his lungs sound fairly clear Cardiovascular exam: PRESENT: irregular rhythm, tachycardia GI/Abdominal exam: PRESENT: normal bowel sounds, soft, other - His abdomen is significantly obese. I have not been able to assess for organomegaly due to the patient's body habitus. ABSENT: distended, guarding, mass, rebound, tenderness Rectal exam: PRESENT: deferred Extremities exam: PRESENT: other - He has significant venous stasis changes bilaterally with pitting edema Musculoskeletal exam: PRESENT: ambulatory Neurological exam: PRESENT: alert, awake, oriented to person, oriented to place , oriented to time, oriented to situation, CN II-XII grossly intact. ABSENT: motor sensory deficit Psychiatric exam: PRESENT: appropriate affect, normal mood. ABSENT: homicidal ideation, suicidal ideation Skin exam: PRESENT: dry, intact, warm. ABSENT: cyanosis, rash Results Laboratory Results: 12/07/17 08:10 12/07/17 08:10 12/07/17 12/07/17 08:10 08:10 WBC 7.4 RBC 4.93 Hgb 15.9 Hct 45.0 MCV 91 MCH 32.2 MCHC 35.3 RDW 13.2 Plt Count 196 Seg Neutrophils % 72.3 Lymphocytes % 18.4 Monocytes % 8.1 Eosinophils % 1.0 Basophils % 0.2 Absolute Neutrophils 5.4 Absolute Lymphocytes 1.4 Absolute Monocytes 0.6 Absolute Eosinophils 0.1 Absolute Basophils 0.0 Sodium 139.8 Potassium 3.5 L Chloride 93 L Carbon Dioxide 33 H Anion Gap 14 BUN 15 Creatinine 0.83 Est GFR ( Amer) > 60 Est GFR (Non-Af Amer) > 60 Glucose 120 H Calcium 10.2 Phosphorus 3.8 Magnesium 1.9 12/06/17 12/06/17 12/06/17 03:30 12:25 18:31 Troponin I < 0.012 < 0.012 < 0.012 NT-Pro-B Natriuret Pep 12/07/17 08:10 Troponin I NT-Pro-B Natriuret Pep 431 H Impressions: Chest X-Ray 12/05/17 16:26 IMPRESSION: CARDIAC ENLARGEMENT. VASCULAR CONGESTION. Soft Tissue Neck CT 12/05/17 19:49 IMPRESSION: Enlarged thyroid gland. No evidence for airway compromise. Thyroid Ultrasound 12/06/17 00:00 IMPRESSION: There appears to be a nodule in the right lobe of the thyroid as described. This study is quite limited. Venous Doppler Study 12/07/17 00:00 IMPRESSION: NO EVIDENCE DVT OR SVT IN EITHER LEG. Assessment & Plan - Diagnosis (1) Atrial fibrillation with RVR Is this a current diagnosis for this admission?: Yes Plan: He continues on a Cardizem drip. Cardiology is following. He is maintaining his pressure at this point. (2) Acute CHF (congestive heart failure) Qualifiers: Heart failure type: unspecified Qualified Code(s): I50.9 - Heart failure, unspecified Is this a current diagnosis for this admission?: Yes Plan: I suspect the patient has some right-sided heart failure issues. He has known untreated obstructive sleep apnea and states that he just cannot tolerate his mask. He had an echocardiogram in 2016 which revealed normal LV function. No evidence of diastolic dysfunction at that time. He was noted to have mild aortic stenosis as well as mild pulmonary hypertension which I suspect is gotten worse. Currently he is receiving Lasix 60 mg twice daily and is tolerating it quite well (3) Hypotension Is this a current diagnosis for this admission?: Yes Plan: The patient was hypotensive requiring pressors which have since been weaned off. No further hypotension requiring pressors since that time (4) Pulmonary hypertension Is this a current diagnosis for this admission?: Yes Plan: The patient had mild pulmonary hypertension on echocardiogram in 2016. This could be contributing to his shortness of breath. His obstructive sleep apnea is not treated. 2D echocardiogram has been ordered. (5) Aortic stenosis Is this a current diagnosis for this admission?: Yes Plan: Per echocardiogram in 2016 the patient had mild aortic stenosis. Fortunately he is no longer hypotensive. Repeat cardiac echo has been ordered and Dr. Pena is following (6) Hypertensive emergency Is this a current diagnosis for this admission?: Yes Plan: Possibly contributing to his CHF. Blood pressures were as high as 183/152. After being started on his Cardizem drip and diuresed with IV Lasix he then became hypotensive. He seems to have quite labile blood pressure at this point. (7) Obstructive sleep apnea Is this a current diagnosis for this admission?: Yes Plan: He states he does not tolerate his mask. I have asked the to bring in his machine so that we can find out what his settings were. I will have respiratory therapy try to work with the patient while he is here in the hospital to get him to tolerate his CPAP better. (8) Thyroid nodule Is this a current diagnosis for this admission?: Yes Plan: Noted on imaging studies. CT scan recommended an ultrasound. His ultrasound revealed a hard nodule. Further workup can be performed as an outpatient. Thyroid function test are stable (9) Morbid obesity Is this a current diagnosis for this admission?: Yes Plan: Certainly this is contributing to his respiratory issues. Dietary discretion is advised (10) Dyslipidemia Is this a current diagnosis for this admission?: Yes Plan: Yesterday the patient was started on a statin medication (11) Opiate dependence, continuous Is this a current diagnosis for this admission?: Yes Plan: The patient takes 10 mg of oxycodone at home every 8 hours on a scheduled basis. We will continue his home regimen here in the hospital. I am not going to escalate it. He also is on a Butrans patch which will be continued as well (12) Chronic prescription benzodiazepine use Is this a current diagnosis for this admission?: Yes Plan: He will continue his home dose of lorazepam (13) Hypomagnesemia Is this a current diagnosis for this admission?: Yes Plan: His level was quite low at the time of admission. I had like his magnesium level to be above 2. I will give him 1 g of magnesium sulfate today and he will be started on p.o. magnesium supplementation.. (14) Hypokalemia Is this a current diagnosis for this admission?: Yes Plan: His level is low today. Will replete with potassium chloride 3 doses. - Time Time Spent with patient: 25-34 minutes - Inpatient Certification Medical Necessity: Need Close Monitoring Due to Risk of Patient Decompensation, Other - Inpatient hospitalization remains necessary. The patient remains on a Cardizem drip. He is being diuresed with IV Lasix. He is going to have a stress test performed in the morning. Overall he is at high risk for decompensation and I suspect he will be in the hospital for several days.
[2017-12-07] MEDS ORDERED: POTASSIUM CHLORIDE 10 MEQ TABLET.SA PO ONE (15:00)
[2017-12-07] MEDS: OXYCODONE HCL IR 5 MG TABLET PO PRN ×2 (15:24)
[2017-12-07] MEDS ORDERED: MAGNESIUM SULFATE/D5W 1 GM/100 ML RTUPB IV ONE (15:30)
[2017-12-07] MEDS: MAGNESIUM OXIDE 400 MG TABLET PO SCH (17:30)
--- NOTE | 2017-12-07 17:45 | RADIOLOGY REPORT (SQ) ---
EXAM DESCRIPTION: CERV SP 4 OR 5 VIEWS COMPLETED DATE/TIME: 12/07/2017 5:10 pm REASON FOR STUDY: neck pain COMPARISON: None. NUMBER OF VIEWS: Five views. TECHNIQUE: AP, lateral, obliques and odontoid radiographic images acquired of the cervical spine. LIMITATIONS: None. FINDINGS: MINERALIZATION: Normal. ALIGNMENT: Anatomic. VERTEBRAE: Patient is status post anterior fusion extending from the C4 to the C7 level. DISCS: No significant disc space reduction is identified at the C2-C3 and C3-C4 levels. There is ant erior osteophytic lipping P FORAMINA: No osteophytes or foraminal narrowing. LATERAL AND POSTERIOR ELEMENTS: Facets, lateral masses and spinous processes without significant find ings. HARDWARE: Anterior orthopedic plate transfixed by orthopedic screws is identified extending from the C4 to the C7 level SOFT TISSUES: No masses or calcifications. Lung apices clear. OTHER: No other significant finding. IMPRESSION: Postsurgical and degenerative changes as noted above TECHNICAL DOCUMENTATION: JOB ID: [id number] [employer]- All Rights Reserved Reading location - IP/workstation name: [email or web address]
--- NOTE | 2017-12-07 19:12 | XCELERA REPORT ---
[address] [address] Transthoracic Echocardiogram Report Name: CATHERINE NOVOA Age: 47 yrs Gender: Male : 1970 Patient Status: Inpatient Patient Location: [address] [place], [place] [address] Study Date: 12/07/2017 09:57 AM Height: 70 in Weight: 326 lb BSA: 2.6 m2 Procedure: A complete two-dimensional transthoracic echocardiogram was performed (2D, M-mode, spectral and color flow Doppler). The study was technically difficult with many images being suboptimal in quality. Reason For Study: A FIB, Hypotension Ordering Physician: MAGDALENO REMY Performed By: Darling Almaraz Interpretation Summary The left ventricular ejection fraction is within normal limits. There is moderate concentric left ventricular hypertrophy. The left ventricle is grossly normal size. Not all wall segments were well visualized. Wall motion cannot be accurately commented on, but no definite regional wall motion abnormalities noted. The right ventricle is mild to moderately dilated. The right ventricle appears to be hypertrophied The right ventricular systolic function is normal. The right atrium is mildly dilated. The left atrium is mildly dilated. There is no mitral valve stenosis. There is a trace amount of mitral regurgitation There is no aortic valve stenosis No aortic regurgitation is present. No tricuspid regurgitation. There is no tricuspid stenosis. The aortic root is not well visualized. The inferior vena cava was not well visualized Minimal pericardial effusion. MMode/2D Measurements & Calculations RVDd: 3.7 cm LVIDd: 4.8 cmFS: 32.8 % Ao root diam: 3.7 cm IVSd: 1.4 cm LVIDs: 3.2 cmEDV(Teich): 107.9 ml LVPWd: 1.4 cmESV(Teich): 42.0 ml Ao root area: 10.6 cm2 EF(Teich): 61.1 % LA dimension: 4.1 cm LVOT diam: 2.6 cm LVOT area: 5.5 cm2 Doppler Measurements & Calculations MV E max tom: MV P1/2t max tom: Ao V2 max: LV V1 max P.4 cm/sec 89.8 cm/sec 121.5 cm/sec 3.7 mmHg MV P1/2t: 57.7 msec Ao max PG: LV V1 max: MVA(P1/2t): 3.8 cm2 5.9 mmHg 95.8 cm/sec MV dec slope: TRUDY(V,D): 4.3 cm2 456.2 cm/sec2 PA V2 max: 109.1 cm/sec PA max P.8 mmHg Left Ventricle The left ventricle is grossly normal size. There is moderate concentric left ventricular hypertrophy. The left ventricular ejection fraction is within normal limits. LV diastolic function could not be adequately assessed due to atrial fibrilation. Not all wall segments were well visualized. Wall motion cannot be accurately commented on, but no definite regional wall motion abnormalities noted. Right Ventricle The right ventricle is mild to moderately dilated. The right ventricle appears to be hypertrophied. The right ventricular systolic function is normal. Atria The right atrium is mildly dilated. The left atrium is mildly dilated. Interarterial septum not well visualized and not well dopplered. Cannot comment on ASD/PFO presence. Mitral Valve The mitral valve is grossly normal. There is no mitral valve stenosis. There is a trace amount of mitral regurgitation. Aortic Valve The aortic valve is not well visualized secondary to technical limitations. There is no aortic valve stenosis. No aortic regurgitation is present. Tricuspid Valve The tricuspid valve is not well visualized secondary to technical limitations. There is no tricuspid stenosis. No tricuspid regurgitation. Pulmonic Valve The pulmonic valve is not well visualized. Great Vessels The aortic root is not well visualized. The inferior vena cava was not well visualized. Effusions Minimal pericardial effusion. : MAGDALENO REMY > Magdaleno Remy
--- NOTE | 2017-12-07 20:25 | PDOC PROGRESS REPORT ---
Subjective Progress Note for:: 12/07/17 Subjective:: Patient noted some neck pain and chest pain. He remains significantly short of breath. He remains in atrial fibrillation. He prefers to have a stress test performed. This will be scheduled. A 2D echocardiogram performed was reviewed. It was a technically difficult study but showed LVEF to be relatively well-preserved. RV was noted to be at least moderately enlarged. Reason For Visit: A FIB WITH RVR Physical Exam Vital Signs: Temp Pulse Resp BP Pulse Ox 99.1 F 112 H 18 116/80 97 12/07/17 15:15 12/07/17 16:15 12/07/17 16:15 12/07/17 18:00 12/07/17 16:15 Intake & Output 12/06/17 12/07/17 12/08/17 06:59 06:59 06:59 Intake Total 845 983 Output Total 1625 3850 2070 Balance -1625 -3005 -1087 Weight 148 kg 148 kg Exam: GENERAL: well-nourished and in no acute distress. Alert and oriented x3 HEAD: Atraumatic, normocephalic. EYES: Pupils equal round and reactive to light, extraocular movements intact, sclera anicteric, conjunctiva are normal. ENT: TMs normal, nares patent, oropharynx clear without exudates. Moist mucous membranes. No oral ulcerations or bleeding gums noted NECK: supple without lymphadenopathy. Trachea is central. No cervical or axillary lymphadenopathy noted. Carotids are 2+, JVD difficult to assess but seems to be distended. LUNGS: Respiration seems nonlabored, no significant accessory muscle action noted. Breath sounds bibasilar fine crackles. Few wheezes rales or rhonchi noted. No significant dullness noted on percussion. CHEST: Palpation of the chest wall shows no significant chest wall tenderness. HEART: Lott TEST MANAGER, No PSH, 1/6 ANDRES aortic area, 1/6 jeffery systolic murmur mitral area, no rubs, no gallops. ABDOMEN: Soft, no significant tenderness appreciated, normoactive bowel sounds. No guarding, no rebound. No rigidity noted . No masses appreciated. EXTREMITIES: Pedal pulses are 1-2+, no calf tenderness noted. No clubbing or cyanosis. 2-3+ pedal edema noted NEUROLOGICAL: Focused neurological exam showed no significant neurologic deficit. Normal speech, no focal weakness appreciated. PSYCH: Normal mood, normal affect. Judgment and insight within normal limits. SKIN: No significant ecchymosis, skin is noted to be warm. MUSCULOSKELETAL EXAM: No significant acute joint swelling noted. Results Laboratory Results: 12/07/17 08:10 12/07/17 08:10 12/07/17 12/07/17 08:10 08:10 WBC 7.4 RBC 4.93 Hgb 15.9 Hct 45.0 MCV 91 MCH 32.2 MCHC 35.3 RDW 13.2 Plt Count 196 Seg Neutrophils % 72.3 Lymphocytes % 18.4 Monocytes % 8.1 Eosinophils % 1.0 Basophils % 0.2 Absolute Neutrophils 5.4 Absolute Lymphocytes 1.4 Absolute Monocytes 0.6 Absolute Eosinophils 0.1 Absolute Basophils 0.0 Sodium 139.8 Potassium 3.5 L Chloride 93 L Carbon Dioxide 33 H Anion Gap 14 BUN 15 Creatinine 0.83 Est GFR ( Amer) > 60 Est GFR (Non-Af Amer) > 60 Glucose 120 H Calcium 10.2 Phosphorus 3.8 Magnesium 1.9 12/06/17 12/06/17 12/06/17 03:30 12:25 18:31 Troponin I < 0.012 < 0.012 < 0.012 NT-Pro-B Natriuret Pep 12/07/17 08:10 Troponin I NT-Pro-B Natriuret Pep 431 H EKG Comments: Shows atrial fibrillation with rapid ventricular response Impressions: Chest X-Ray 12/05/17 16:26 IMPRESSION: CARDIAC ENLARGEMENT. VASCULAR CONGESTION. Soft Tissue Neck CT 12/05/17 19:49 IMPRESSION: Enlarged thyroid gland. No evidence for airway compromise. Thyroid Ultrasound 12/06/17 00:00 IMPRESSION: There appears to be a nodule in the right lobe of the thyroid as described. This study is quite limited. Cervical Spine X-Ray 12/07/17 00:00 IMPRESSION: Postsurgical and degenerative changes as noted above Venous Doppler Study 12/07/17 00:00 IMPRESSION: NO EVIDENCE DVT OR SVT IN EITHER LEG. Assessment & Plan - Diagnosis (1) Acute CHF (congestive heart failure) Qualifiers: Heart failure type: unspecified Qualified Code(s): I50.9 - Heart failure, unspecified Is this a current diagnosis for this admission?: Yes (2) Atrial fibrillation with RVR Is this a current diagnosis for this admission?: Yes (3) Chronic respiratory failure Qualifiers: Respiratory failure complication: hypoxia and hypercapnia Qualified Code(s) : J96.11 - Chronic respiratory failure with hypoxia; J96.12 - Chronic respiratory failure with hypercapnia; J96.12 - Chronic respiratory failure with hypercapnia; J96.12 - Chronic respiratory failure with hypercapnia Is this a current diagnosis for this admission?: Yes (4) Dyslipidemia Is this a current diagnosis for this admission?: Yes (5) Morbid obesity Is this a current diagnosis for this admission?: Yes (6) Obstructive sleep apnea Is this a current diagnosis for this admission?: Yes - Notes Notes: Acute congestive heart failure: Most likely related to diastolic dysfunction and being precipitated by atrial fibrillation. Chest x-ray does show mild cardiomegaly. A 2D echocardiogram results reviewed with the patient. LVEF WNL. Moderate LVH, moderate enlargement of the RV, RV function cannot be accurately assessed is felt to be well preserved. Patient noted to have pulmonary hypertension. Feel that patient predominantly has right-sided heart failure and some diastolic left-sided heart failure. Atrial fibrillation with rapid ventricular response: Agree with what controlled with either beta blockers or calcium channel lora such as Cardizem. May also use digoxin especially if hypotension is a problem. Recommend chronic anticoagulation with Eliquis in view of CHF. Patient also seems to have hypertension. Patient started on metoprolol succinate at 25 mg p.o. twice daily. Chronic respiratory failure: Patient seems to have this based on obesity hypoventilation and also severe sleep apnea syndrome which patient claims he is not being treated. Continue with oxygen supplementation. Patient claims he has oxygen at home. Patient currently using his home CPAP. Patient may need a titration study. This can be performed through my office. Dyslipidemia: Recommend statin therapy with LDL goal of 70 or less. Morbid obesity: Patient will benefit from significant weight loss. Obstructive sleep apnea: Patient will greatly benefit from therapy for obstructive sleep apnea. Patient may be able to be desensitized while in hospital towards CPAP therapy. - Time Time with patient: Greater than 35 minutes - CODE STATUS was discussed, patient remains full code. Surrogate decision-maker unchanged. Multiple medical problems were addressed. More than 50% of the time spent coordinating care, discussing management plans with involved caregivers. Management plans discussed with involved personnels. Medical decision making was of moderate to high complexity, patient's has multiple comorbidities. Medications reviewed and adjusted accordingly: Yes
[2017-12-07] MEDS: POTASSIUM CHLORIDE 10 MEQ TABLET.SA PO SCH (22:21)
[2017-12-07] MEDS: ATORVASTATIN CALCIUM 40 MG TABLET PO SCH (22:22)
[2017-12-08] MEDS: OXYCODONE HCL IR 5 MG TABLET PO PRN ×2 (00:21→14:18)
[2017-12-08] MEDS: DILTIAZEM HCL/D5W 125 MG/125 ML RTUINJ IV PRN ×2 (00:23→08:49)
[2017-12-08] MEDS: ACETAMINOPHEN 325 MG TABLET PO PRN (03:10)
[2017-12-08 05:12] LABS: ABSOLUTE EOSINOPHILS # (AUTO) 0.1 10^3/uL (0.0-0.6); ABSOLUTE LYMPHOCYTES (AUTO) 1.9 10^3/uL (0.5-4.7); ABSOLUTE MONOCYTES (AUTO) 0.9 10^3/uL (0.1-1.4); ABSOLUTE NEUT (AUTO) 5.7 10^3/uL (1.7-8.2); BASOPHILS % (AUTO) 0.2 % (0-2); HEMATOCRIT 44.9 % (37.9-51.0); HEMOGLOBIN 15.7 g/dL (13.5-17.0); LYMPHOCYTES % (AUTO) 21.7 % (13-45); MEAN CORPUSCULAR HEMOGLOBIN 32.2 pg (27.0-33.4); MEAN CORPUSCULAR HGB CONC 34.9 g/dL (32.0-36.0); MEAN CORPUSCULAR VOLUME 92 fl (80-97); MONOCYTES % (AUTO) 10.8 % (3-13); PLATELET COUNT 204 10^3/uL (150-450); RED BLOOD COUNT 4.86 10^6/uL (4.35-5.55); RED CELL DISTRIBUTION WIDTH 13.1 % (11.5-14.0); SEGMENTED NEUTROPHILS % (AUTO) 66.3 % (42-78); TOTAL CELLS COUNTED % (AUTO) 100 %; WHITE BLOOD COUNT 8.6 10^3/uL (4.0-10.5)
[2017-12-08] MEDS ORDERED: OXYCODONE HCL IR 5 MG TABLET ONE (05:27)
[2017-12-08] MEDS ORDERED: OXYCODONE HCL IR 5 MG TABLET PO ONE (05:30)
[2017-12-08 05:37] LABS: ANION GAP 15 (5-19); BLOOD UREA NITROGEN 18 mg/dL (7-20); CARBON DIOXIDE 34 mmol/L (22-30); CHLORIDE 93 mmol/L (98-107); GLUCOSE 116 mg/dL (75-110); POTASSIUM 3.9 mmol/L (3.6-5.0); SODIUM 141.5 mmol/L (137-145)
[2017-12-08] MEDS: LORAZEPAM 0.5 MG TABLET PO SCH ×3 (05:41→21:22)
[2017-12-08] MEDS: HEPARIN SOD (PORCINE) 5,000 UNIT/ML 1 ML SYRINGE SUBCUT SCH ×2 (05:41→14:17)
[2017-12-08] MEDS ORDERED: PROMETHAZINE HCL INJ 25 MG/1 ML VIAL IV PRN (08:00)
[2017-12-08] MEDS ORDERED: METOPROLOL TARTRATE PF/INJ 5 MG/5 ML SDV IV ONE ×2 (08:58→09:30)
[2017-12-08] MEDS: TIZANIDINE HCL 4 MG TABLET PO SCH ×3 (09:14→17:32)
[2017-12-08] MEDS: MAGNESIUM OXIDE 400 MG TABLET PO SCH ×2 (09:14→17:32)
[2017-12-08] MEDS: POTASSIUM CHLORIDE 10 MEQ TABLET.SA PO SCH (09:14)
[2017-12-08] MEDS: FUROSEMIDE INJ/PF 100 MG/10 ML SDV IV SCH ×2 (09:15→17:32)
[2017-12-08] MEDS: METOPROLOL SUCCINATE 25 MG TAB.SR.24H PO SCH ×2 (10:44→21:22)
[2017-12-08] MEDS: RAMIPRIL 1.25 MG CAPSULE PO SCH (10:45)
--- NOTE | 2017-12-08 11:20 | PDOC PROGRESS REPORT ---
Subjective Progress Note for:: 12/08/17 Subjective:: No new issues. We discussed the relationship between obstructive sleep apnea and atrial fibrillation. Encouraged him to wear his CPAP. Reason For Visit: A FIB WITH RVR Physical Exam Vital Signs: Temp Pulse Resp BP Pulse Ox 98.4 F 101 H 17 149/91 H 99 12/08/17 07:19 12/08/17 07:19 12/08/17 07:19 12/08/17 07:19 12/08/17 07:19 Intake & Output 12/07/17 12/08/17 12/09/17 06:59 06:59 06:59 Intake Total 845 1403 Output Total 3850 2795 Balance -3005 -1392 Weight 148 kg General appearance: PRESENT: no acute distress, morbidly obese Respiratory exam: PRESENT: clear to auscultation juan josé Cardiovascular exam: PRESENT: other - Irregularly irregular and tachycardic GI/Abdominal exam: PRESENT: soft Extremities exam: PRESENT: +2 edema - Below the knees Neurological exam: PRESENT: alert Psychiatric exam: PRESENT: appropriate affect Skin exam: PRESENT: warm Results Laboratory Results: 12/08/17 04:27 12/08/17 04:27 12/08/17 12/08/17 04:27 04:27 WBC 8.6 RBC 4.86 Hgb 15.7 Hct 44.9 MCV 92 MCH 32.2 MCHC 34.9 RDW 13.1 Plt Count 204 Seg Neutrophils % 66.3 Lymphocytes % 21.7 Monocytes % 10.8 Eosinophils % 1.0 Basophils % 0.2 Absolute Neutrophils 5.7 Absolute Lymphocytes 1.9 Absolute Monocytes 0.9 Absolute Eosinophils 0.1 Absolute Basophils 0.0 Sodium 141.5 Potassium 3.9 Chloride 93 L Carbon Dioxide 34 H Anion Gap 15 BUN 18 Creatinine 0.96 Est GFR ( Amer) > 60 Est GFR (Non-Af Amer) > 60 Glucose 116 H Calcium 10.0 Magnesium 2.1 12/06/17 12/06/17 12/06/17 03:30 12:25 18:31 Troponin I < 0.012 < 0.012 < 0.012 NT-Pro-B Natriuret Pep 12/07/17 08:10 Troponin I NT-Pro-B Natriuret Pep 431 H Impressions: Chest X-Ray 12/05/17 16:26 IMPRESSION: CARDIAC ENLARGEMENT. VASCULAR CONGESTION. Soft Tissue Neck CT 12/05/17 19:49 IMPRESSION: Enlarged thyroid gland. No evidence for airway compromise. Thyroid Ultrasound 12/06/17 00:00 IMPRESSION: There appears to be a nodule in the right lobe of the thyroid as described. This study is quite limited. Cervical Spine X-Ray 12/07/17 00:00 IMPRESSION: Postsurgical and degenerative changes as noted above Venous Doppler Study 12/07/17 00:00 IMPRESSION: NO EVIDENCE DVT OR SVT IN EITHER LEG. Assessment & Plan - Diagnosis (1) Acute and chronic respiratory failure with hypoxia Is this a current diagnosis for this admission?: Yes Plan: BiPAP, diuresis, wean oxygen as tolerated (2) Acute on chronic diastolic CHF (congestive heart failure), NYHA class 3 Is this a current diagnosis for this admission?: Yes Plan: Improved rate control, and diuresis. (3) Atrial fibrillation with RVR Is this a current diagnosis for this admission?: Yes Plan: Continue to work on improved rate control. He responded well to a beta-lora , that will be continued. (4) Obstructive sleep apnea Is this a current diagnosis for this admission?: Yes Plan: Wrongly encouraged CPAP use.
[2017-12-08] MEDS: DILTIAZEM HCL 60 MG TABLET PO SCH ×2 (12:13→17:32)
[2017-12-08] MEDS: APIXABAN 5 MG TABLET PO SCH (17:32)
--- NOTE | 2017-12-08 20:28 | PDOC PROGRESS REPORT ---
Subjective Progress Note for:: 12/08/17 Subjective:: Patient noted some neck pain and chest pain. He remains significantly short of breath. He remains in atrial fibrillation. He prefers to have a stress test performed. This will be scheduled. A 2D echocardiogram performed was reviewed. It was a technically difficult study but showed LVEF to be relatively well-preserved. RV was noted to be at least moderately enlarged. Reason For Visit: A FIB WITH RVR Physical Exam Vital Signs: Temp Pulse Resp BP Pulse Ox 98.7 F 97 20 131/65 H 98 12/08/17 19:44 12/08/17 19:44 12/08/17 19:44 12/08/17 19:44 12/08/17 19:44 Intake & Output 12/07/17 12/08/17 12/09/17 06:59 06:59 06:59 Intake Total 845 1403 927 Output Total 3850 2795 1415 Balance -3005 -1392 -488 Weight 148 kg Exam: GENERAL: well-nourished and in no acute distress. Alert and oriented x3 HEAD: Atraumatic, normocephalic. EYES: Pupils equal round and reactive to light, extraocular movements intact, sclera anicteric, conjunctiva are normal. ENT: TMs normal, nares patent, oropharynx clear without exudates. Moist mucous membranes. No oral ulcerations or bleeding gums noted NECK: supple without lymphadenopathy. Trachea is central. No cervical or axillary lymphadenopathy noted. Carotids are 2+, JVD possibly distended could not be adequately evaluated. LUNGS: Respiration seems nonlabored, no significant accessory muscle action noted. Breath sounds shows bibasilar fine crackles. No wheezes rales or rhonchi noted. No significant dullness noted on percussion. CHEST: Palpation of the chest wall shows no significant chest wall tenderness. 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 ABDOMEN: Soft, no significant tenderness appreciated, normoactive bowel sounds. No guarding, no rebound. No rigidity noted . No masses appreciated. EXTREMITIES: Pedal pulses are 1-2+, no calf tenderness noted. No clubbing or cyanosis. 2+ pedal edema noted NEUROLOGICAL: Focused neurological exam showed no significant neurologic deficit. Normal speech, no focal weakness appreciated. PSYCH: Normal mood, normal affect. Judgment and insight within normal limits. SKIN: No significant ecchymosis, skin is noted to be warm. MUSCULOSKELETAL EXAM: No significant acute joint swelling noted. Results Laboratory Results: 12/08/17 04:27 12/08/17 04:27 12/08/17 12/08/17 04:27 04:27 WBC 8.6 RBC 4.86 Hgb 15.7 Hct 44.9 MCV 92 MCH 32.2 MCHC 34.9 RDW 13.1 Plt Count 204 Seg Neutrophils % 66.3 Lymphocytes % 21.7 Monocytes % 10.8 Eosinophils % 1.0 Basophils % 0.2 Absolute Neutrophils 5.7 Absolute Lymphocytes 1.9 Absolute Monocytes 0.9 Absolute Eosinophils 0.1 Absolute Basophils 0.0 Sodium 141.5 Potassium 3.9 Chloride 93 L Carbon Dioxide 34 H Anion Gap 15 BUN 18 Creatinine 0.96 Est GFR ( Amer) > 60 Est GFR (Non-Af Amer) > 60 Glucose 116 H Calcium 10.0 Magnesium 2.1 12/06/17 12/06/17 12/06/17 03:30 12:25 18:31 Troponin I < 0.012 < 0.012 < 0.012 NT-Pro-B Natriuret Pep 12/07/17 08:10 Troponin I NT-Pro-B Natriuret Pep 431 H EKG Comments: Shows atrial fibrillation with rapid ventricular response Impressions: Chest X-Ray 12/05/17 16:26 IMPRESSION: CARDIAC ENLARGEMENT. VASCULAR CONGESTION. Soft Tissue Neck CT 12/05/17 19:49 IMPRESSION: Enlarged thyroid gland. No evidence for airway compromise. Thyroid Ultrasound 12/06/17 00:00 IMPRESSION: There appears to be a nodule in the right lobe of the thyroid as described. This study is quite limited. Cervical Spine X-Ray 12/07/17 00:00 IMPRESSION: Postsurgical and degenerative changes as noted above Venous Doppler Study 12/07/17 00:00 IMPRESSION: NO EVIDENCE DVT OR SVT IN EITHER LEG. Assessment & Plan - Diagnosis (1) Acute CHF (congestive heart failure) Qualifiers: Heart failure type: unspecified Qualified Code(s): I50.9 - Heart failure, unspecified Is this a current diagnosis for this admission?: Yes (2) Atrial fibrillation with RVR Is this a current diagnosis for this admission?: Yes (3) Chronic respiratory failure Qualifiers: Respiratory failure complication: hypoxia and hypercapnia Qualified Code(s) : J96.11 - Chronic respiratory failure with hypoxia; J96.12 - Chronic respiratory failure with hypercapnia; J96.12 - Chronic respiratory failure with hypercapnia; J96.12 - Chronic respiratory failure with hypercapnia Is this a current diagnosis for this admission?: Yes (4) Dyslipidemia Is this a current diagnosis for this admission?: Yes (5) Morbid obesity Is this a current diagnosis for this admission?: Yes (6) Obstructive sleep apnea Is this a current diagnosis for this admission?: Yes - Notes Notes: Patient started on metoprolol succinate 25 mg p.o. twice daily. Hopefully this will help with control of heart rate. Patient was not noted to have significant wheezing. Also discussed pursuing stress test with the patient. He is agreeable. This was therefore scheduled. It is felt that he may need to do protocol because of his extreme obesity. Patient to have rest imaging performed today if at all feasible. Will consider stress imaging when heart rate is better controlled. - Time Time with patient: Greater than 35 minutes - CODE STATUS was discussed, patient remains full code. Surrogate decision-maker unchanged. Multiple medical problems were addressed. More than 50% of the time spent coordinating care, discussing management plans with involved caregivers. Management plans discussed with involved personnels. Medical decision making was of moderate to high complexity, patient's has multiple comorbidities. Medications reviewed and adjusted accordingly: Yes
[2017-12-08] MEDS: ATORVASTATIN CALCIUM 40 MG TABLET PO SCH (21:22)
[2017-12-09] MEDS: DILTIAZEM HCL 60 MG TABLET PO SCH ×4 (00:14→17:45)
[2017-12-09] MEDS: LORAZEPAM 0.5 MG TABLET PO SCH ×3 (06:33→22:06)
[2017-12-09] MEDS: OXYCODONE HCL IR 5 MG TABLET PO PRN ×2 (08:27→17:45)
[2017-12-09] MEDS: MAGNESIUM OXIDE 400 MG TABLET PO SCH ×2 (10:42→17:45)
[2017-12-09] MEDS: FUROSEMIDE INJ/PF 100 MG/10 ML SDV IV SCH ×2 (10:42→17:44)
[2017-12-09] MEDS: TIZANIDINE HCL 4 MG TABLET PO SCH ×3 (10:43→17:45)
[2017-12-09] MEDS: APIXABAN 5 MG TABLET PO SCH ×2 (10:43→17:45)
[2017-12-09] MEDS: METOPROLOL SUCCINATE 25 MG TAB.SR.24H PO SCH (10:43)
[2017-12-09] MEDS: RAMIPRIL 1.25 MG CAPSULE PO SCH (10:46)
--- NOTE | 2017-12-09 11:54 | DRAGON STRESS TEST REPORT ---
INTRAVENOUS LEXISCAN CARDIOLITE STRESS TEST USING SINGLE PHOTON EMMISION COMPUTERIZED TOMOGRAPHIC. DATE OF PROCEDURE: December 09, 2017, INDICATION : CHF, atrial fibrillation, chest pain CARDIAC RISK FACTORS: Hypertension, dyslipidemia RESTING EKG: Atrial fibrillation with nonspecific ST-T wave changes STRESS EKG: No significant ST segment changes noted with LexiScan bolus REASON FOR TERMINATION: Protocol. PROCEDURE REPORT: Baseline heart rate 102 beats per minute with blood pressure of 131/68. Patient had no significant complaints. Patient was bolused with Lexiscan 0.4 mg intravenously followed by saline bolus. Heart rate at 2 minutes post bolus 150 with a blood pressure of 151/79. 3 minutes post bolus heart rate 110 with blood pressure of 148/74. No significant EKG changes were noted. Patient had no significant complaints during the procedure or postprocedure. Patient injected with Aminophyllin 75 mg at 3 minutes or later after Lexiscan bolus. CONCLUSIONS: Normal EKG and hemodynamic response to IV LexiScan. NUCLEAR DATA: At rest the patient was given 43.9 millicuries of technetium 99 sestamibi injected intravenously. As per protocol rest gated SPECT images were obtained. On day of stress test, the patient was given intravenous LexiScan at a dose of 0.4 mg in 5 mL intravenously, followed by flush with normal saline. Subsequently the stress dose of 42.2 millicuries of technetium 99 sestamibi was injected intravenously. As per protocol stress gated images were obtained. NUCLEAR INTERPRETATION: Both raw and processed data were used for interpretation. Visual, qualitative, computer-generated quantitative data was used. There was good myocardial uptake of technetium compound. Motion artifact and soft tissue attenuations were noted. Increased visceral uptake was noted. No definitive areas of transient perfusion defect noted, No definitive areas of fixed perfusion defect or scars noted. EKG gated imaging showed LV EF at 42 %, rest and stress gated EF similar visually. T. I D. ratio was 1.11. Lung heart ratio noted to be within normal limits 0.37. No significant extracardiac and abnormal radiotracer activities were noted. RV free wall uptake was noted to be increased. IMPRESSION: Also refer to comments under nuclear interpretation. Also test results needs to be interpreted in the context of pretest probability. 1. No definitive areas of transient perfusion defect noted. 2. There is no definitive scintigraphic evidence of myocardial infarction/scar. 3. EKG gated imaging shows left ventricular ejection fraction of approx. 42 %. 4. Clinical correlation requested as occasionally single vessel disease or balanced ischemia could be missed. In approximately 10% of the cases Lexiscan may not cause adequate vasodilatory stress. RECOMMENDATIONS: Aggressive risk factor modification and medical management. Further evaluation may be needed if continued symptoms or other high risk indicators are noted on clinical evaluation. Close cardiology follow-up is also recommended. Clinical correlation with echocardiogram derived ejection fraction. Inability to exercise by itself can lead to increased cardiovascular event risks. Consider cardiology consultation and or follow-up if clinically indicated. I am available for cardiology evaluation and consultation if requested by the bilingual student tutor, unless patient already has a coagulation operator. TAM
--- NOTE | 2017-12-09 12:57 | PDOC PROGRESS REPORT ---
Subjective Progress Note for:: 12/09/17 Subjective:: Swelling considerably improved. States she has been tolerating his BiPAP Reason For Visit: A FIB WITH RVR Physical Exam Vital Signs: Temp Pulse Resp BP Pulse Ox 98.7 F 84 16 135/97 H 100 12/09/17 11:24 12/09/17 11:24 12/09/17 11:24 12/09/17 11:24 12/09/17 11:24 Intake & Output 12/08/17 12/09/17 12/10/17 06:59 06:59 06:59 Intake Total 1403 1547 Output Total 2795 1915 Balance -1392 -368 Weight 326 lb 4.546 oz General appearance: PRESENT: no acute distress, cooperative, morbidly obese Respiratory exam: PRESENT: clear to auscultation juan josé, other - Distant breath sounds. ABSENT: wheezes Cardiovascular exam: PRESENT: other - Irregularly irregular, but not tachycardic GI/Abdominal exam: PRESENT: soft Extremities exam: PRESENT: +1 edema - Below the knees. Chronic stasis changes Musculoskeletal exam: PRESENT: normal inspection Neurological exam: PRESENT: alert Psychiatric exam: PRESENT: appropriate affect Skin exam: PRESENT: warm Results Laboratory Results: 12/08/17 04:27 12/08/17 04:27 12/06/17 12/06/17 12/06/17 03:30 12:25 18:31 Troponin I < 0.012 < 0.012 < 0.012 NT-Pro-B Natriuret Pep 12/07/17 08:10 Troponin I NT-Pro-B Natriuret Pep 431 H Impressions: Chest X-Ray 12/05/17 16:26 IMPRESSION: CARDIAC ENLARGEMENT. VASCULAR CONGESTION. Soft Tissue Neck CT 12/05/17 19:49 IMPRESSION: Enlarged thyroid gland. No evidence for airway compromise. Thyroid Ultrasound 12/06/17 00:00 IMPRESSION: There appears to be a nodule in the right lobe of the thyroid as described. This study is quite limited. Cervical Spine X-Ray 12/07/17 00:00 IMPRESSION: Postsurgical and degenerative changes as noted above Venous Doppler Study 12/07/17 00:00 IMPRESSION: NO EVIDENCE DVT OR SVT IN EITHER LEG. Assessment & Plan - Diagnosis (1) Acute and chronic respiratory failure with hypoxia Is this a current diagnosis for this admission?: Yes Plan: Roughly back to baseline. Continue BiPAP, diuresis, wean oxygen as tolerated (2) Acute on chronic diastolic CHF (congestive heart failure), NYHA class 3 Is this a current diagnosis for this admission?: Yes Plan: Improved rate control, and diuresis. Further medication adjustments per cardiology. Cardiology workup in progress (3) Atrial fibrillation with RVR Is this a current diagnosis for this admission?: Yes Plan: Rate control improved. Continue Eliquis (4) Obstructive sleep apnea Is this a current diagnosis for this admission?: Yes Plan: Strongly encouraged CPAP use.
[2017-12-09] MEDS ORDERED: AMINOPHYLLINE INJ/PF 250 MG/10 ML SDV IV ONE (15:21)
[2017-12-09] MEDS ORDERED: REGADENOSON INJ 0.4 MG/5 ML DISP.SYRIN IV ONE (15:21)
--- NOTE | 2017-12-09 20:17 | PDOC PROGRESS REPORT ---
Subjective Progress Note for:: 12/09/17 Subjective:: Patient noted some neck pain and chest pain. He remains significantly short of breath. He remains in atrial fibrillation. He prefers to have a stress test performed. Patient has rest imaging performed yesterday and today underwent nuclear stress test without any complications. Results were noted to be negative for any significant ischemia. These results were reviewed with the patient. A 2D echocardiogram performed was reviewed. It was a technically difficult study but showed LVEF to be relatively well-preserved. RV was noted to be at least moderately enlarged. Reason For Visit: A FIB WITH RVR Physical Exam Vital Signs: Temp Pulse Resp BP Pulse Ox 98.5 F 81 12 143/84 H 100 12/09/17 17:10 12/09/17 17:10 12/09/17 17:10 12/09/17 17:10 12/09/17 20:03 Intake & Output 12/08/17 12/09/17 12/10/17 06:59 06:59 06:59 Intake Total 1403 1547 20 Output Total 2795 1915 2825 Balance -1392 -368 -2805 Weight 148 kg Exam: GENERAL: well-nourished and in no acute distress. Alert and oriented x3 HEAD: Atraumatic, normocephalic. EYES: Pupils equal round and reactive to light, extraocular movements intact, sclera anicteric, conjunctiva are normal. ENT: TMs normal, nares patent, oropharynx clear without exudates. Moist mucous membranes. No oral ulcerations or bleeding gums noted NECK: supple without lymphadenopathy. Trachea is central. No cervical or axillary lymphadenopathy noted. Carotids are 2+, JVD WNL LUNGS: Respiration seems nonlabored, no significant accessory muscle action noted. Breath sounds clear to auscultation bilaterally and equal noted. No wheezes rales or rhonchi noted. No significant dullness noted on percussion. CHEST: Palpation of the chest wall shows no significant chest wall tenderness. 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 ABDOMEN: Soft, no significant tenderness appreciated, normoactive bowel sounds. No guarding, no rebound. No rigidity noted . No masses appreciated. EXTREMITIES: Pedal pulses are 1-2+, no calf tenderness noted. No clubbing or cyanosis. 1-2+ pedal edema noted NEUROLOGICAL: Focused neurological exam showed no significant neurologic deficit. Normal speech, no focal weakness appreciated. PSYCH: Normal mood, normal affect. Judgment and insight within normal limits. SKIN: No significant ecchymosis, skin is noted to be warm. MUSCULOSKELETAL EXAM: No significant acute joint swelling noted. Results Laboratory Results: 12/08/17 04:27 12/08/17 04:27 12/06/17 12/06/17 12/06/17 03:30 12:25 18:31 Troponin I < 0.012 < 0.012 < 0.012 NT-Pro-B Natriuret Pep 12/07/17 08:10 Troponin I NT-Pro-B Natriuret Pep 431 H EKG Comments: Telemetry strip shows atrial fibrillation with rapid ventricular response Impressions: Chest X-Ray 12/05/17 16:26 IMPRESSION: CARDIAC ENLARGEMENT. VASCULAR CONGESTION. Soft Tissue Neck CT 12/05/17 19:49 IMPRESSION: Enlarged thyroid gland. No evidence for airway compromise. Thyroid Ultrasound 12/06/17 00:00 IMPRESSION: There appears to be a nodule in the right lobe of the thyroid as described. This study is quite limited. Cervical Spine X-Ray 12/07/17 00:00 IMPRESSION: Postsurgical and degenerative changes as noted above Venous Doppler Study 12/07/17 00:00 IMPRESSION: NO EVIDENCE DVT OR SVT IN EITHER LEG. Assessment & Plan - Diagnosis (1) Acute CHF (congestive heart failure) Qualifiers: Heart failure type: unspecified Qualified Code(s): I50.9 - Heart failure, unspecified Is this a current diagnosis for this admission?: Yes (2) Atrial fibrillation with RVR Is this a current diagnosis for this admission?: Yes (3) Chronic respiratory failure Qualifiers: Respiratory failure complication: hypoxia and hypercapnia Qualified Code(s) : J96.11 - Chronic respiratory failure with hypoxia; J96.12 - Chronic respiratory failure with hypercapnia; J96.12 - Chronic respiratory failure with hypercapnia; J96.12 - Chronic respiratory failure with hypercapnia Is this a current diagnosis for this admission?: Yes (4) Dyslipidemia Is this a current diagnosis for this admission?: Yes (5) Morbid obesity Is this a current diagnosis for this admission?: Yes (6) Obstructive sleep apnea Is this a current diagnosis for this admission?: Yes - Notes Notes: Acute congestive heart failure: Most likely related to diastolic dysfunction and being precipitated by atrial fibrillation. Chest x-ray does show mild cardiomegaly. A 2D echocardiogram showed relatively well-preserved LVEF, RV is enlarged. RV dysfunction noted. At this point agree with IV diuretics in view of continuing edema. Atrial fibrillation with rapid ventricular response: Agree with what controlled with either beta blockers or calcium channel lora such as Cardizem. May also use digoxin especially if hypotension is a problem. At this point recommend Lovenox or heparin for anticoagulation. Recommend chronic anticoagulation with Eliquis in view of CHF. Patient also seems to have hypertension. Patient was made to walk in the hallway and was noted to have markedly increased heart rate response. Will go ahead and increase metoprolol succinate to 50 mg p.o. twice daily. Patient remains on Cardizem p.o. as well. Chronic respiratory failure: Patient seems to have this based on obesity hypoventilation and also severe sleep apnea syndrome which patient claims he is not being treated. Continue with oxygen supplementation. Patient claims he has oxygen at home. Patient currently using his home CPAP. Patient may need a titration study. This can be performed through my office. Dyslipidemia: Recommend statin therapy with LDL goal of 70 or less. Morbid obesity: Patient will benefit from significant weight loss. Obstructive sleep apnea: Patient will greatly benefit from therapy for obstructive sleep apnea. Patient may be able to be desensitized while in hospital towards CPAP therapy. - Time Time with patient: Greater than 35 minutes - CODE STATUS was discussed, patient remains full code. Surrogate decision-maker unchanged. Multiple medical problems were addressed. More than 50% of the time spent coordinating care, discussing management plans with involved caregivers. Management plans discussed with involved personnels. Medical decision making was of moderate to high complexity, patient's has multiple comorbidities. Medications reviewed and adjusted accordingly: Yes
[2017-12-09] MEDS: METOPROLOL SUCCINATE 50 MG TAB.SR.24H PO SCH (22:05)
[2017-12-09] MEDS: ATORVASTATIN CALCIUM 40 MG TABLET PO SCH (22:05)
[2017-12-09] MEDS: ACETAMINOPHEN 325 MG TABLET PO PRN (22:21)
[2017-12-10] MEDS: DILTIAZEM HCL 60 MG TABLET PO SCH ×2 (00:59→06:04)
[2017-12-10] MEDS: OXYCODONE HCL IR 5 MG TABLET PO PRN ×2 (02:29→10:37)
[2017-12-10] MEDS: LORAZEPAM 0.5 MG TABLET PO SCH (06:04)
[2017-12-10] MEDS: METOPROLOL SUCCINATE 50 MG TAB.SR.24H PO SCH (09:08)
[2017-12-10] MEDS: RAMIPRIL 1.25 MG CAPSULE PO SCH (09:09)
[2017-12-10] MEDS: FUROSEMIDE INJ/PF 100 MG/10 ML SDV IV SCH (09:09)
[2017-12-10] MEDS: TIZANIDINE HCL 4 MG TABLET PO SCH (09:09)
[2017-12-10] MEDS: APIXABAN 5 MG TABLET PO SCH (09:09)
[2017-12-10] MEDS: MAGNESIUM OXIDE 400 MG TABLET PO SCH (09:09)
[2017-12-10] MEDS: ACETAMINOPHEN 325 MG TABLET PO PRN (09:09)
[2017-12-10 09:18] LABS: ALBUMIN 4.9 g/dL (3.5-5.0); ANION GAP 12 (5-19); BLOOD UREA NITROGEN 22 mg/dL (7-20); CALCIUM 10.2 mg/dL (8.4-10.2); CARBON DIOXIDE 38 mmol/L (22-30); CHLORIDE 91 mmol/L (98-107); GLUCOSE 109 mg/dL (75-110); PHOSPHORUS 3.6 mg/dL (2.5-4.5); POTASSIUM 3.8 mmol/L (3.6-5.0); SODIUM 140.7 mmol/L (137-145)
[2017-12-10 10:56] VITALS: BP 122/72
--- NOTE | 2017-12-10 15:12 | PDOC DISCHARGE SUMMARY ---
General - Admit/Disc Date/PCP Admission Date/Primary Care Provider: 12/05/17 23:28 CARSON SINGER MD Discharge Date: 12/10/17 - Discharge Diagnosis (1) Acute and chronic respiratory failure with hypoxia Is this a current diagnosis for this admission?: Yes Summary: Multifactorial: Acute exacerbation of diastolic heart failure, obesity hypoventilation, and obstructive sleep apnea with noncompliance with CPAP (2) Acute on chronic diastolic CHF (congestive heart failure), NYHA class 3 Is this a current diagnosis for this admission?: Yes Summary: Improved with rate control and diuresis (3) Atrial fibrillation with RVR Is this a current diagnosis for this admission?: Yes Summary: Medications were added to control his rate and he was started on Eliquis. (4) Obstructive sleep apnea Is this a current diagnosis for this admission?: Yes Summary: Noncompliant with CPAP. We had a long discussion about the importance of using CPAP and he has been compliant since then (5) Morbid obesity Is this a current diagnosis for this admission?: Yes - Additional Information Resuscitation Status: Full Code Discharge Diet: Cardiac Discharge Activity: Activity As Tolerated, Balance Activity w/Rest, Weigh Daily Prescriptions: Apixaban [Eliquis 5 mg Tablet] 5 mg PO BID #60 tablet Atorvastatin Calcium [Lipitor 40 mg Tablet] 40 mg PO QHS #30 tablet Diltiazem HCl [Diltiazem 24Hr Cd] 240 mg PO DAILY #30 cap.er.24h Furosemide [Lasix 40 mg Tablet] 40 mg PO QAM #30 tablet Metoprolol Succinate [Toprol Xl 50 mg Tab.sr] 50 mg PO Q12 #60 tab.sr.24h Ramipril [Altace 1.25 mg Capsule] 1.25 mg PO DAILY #30 capsule Home Medications: Buprenorphine [Butrans] 15 mcg TOP WE@0800 12/06/17 Linaclotide [Linzess] 145 mcg PO DAILY 12/06/17 Lorazepam [Ativan 0.5 mg Tablet] 0.5 mg PO Q8HP PRN 12/06/17 Oxycodone HCl [Oxycodone HCl 10 MG Tablet] 10 mg PO Q8HP PRN 12/06/17 Tizanidine HCl [Zanaflex 4 mg Tablet] 4 mg PO Q8HP PRN 12/06/17 Apixaban [Eliquis 5 mg Tablet] 5 mg PO BID #60 tablet 12/10/17 Atorvastatin Calcium [Lipitor 40 mg Tablet] 40 mg PO QHS #30 tablet 12/10/17 Diltiazem HCl [Diltiazem 24Hr Cd] 240 mg PO DAILY #30 cap.er.24h 12/10/17 Furosemide [Lasix 40 mg Tablet] 40 mg PO QAM #30 tablet 12/10/17 Magnesium Oxide [Mag-Ox 400 mg Tablet] 400 mg PO BID tablet 12/10/17 Metoprolol Succinate [Toprol Xl 50 mg Tab.sr] 50 mg PO Q12 #60 tab.sr.24h Ramipril [Altace 1.25 mg Capsule] 1.25 mg PO DAILY #30 capsule 12/10/17 History of Present Illness Patient complains of: Chest pain History of Present Illness: CATHERINE NOVOA is a 47 year old morbidly obese male with history of chronic respiratory failure/COPD (on 3 L home oxygen), obstructive sleep apnea (unable to tolerate CPAP), renal carcinoma (post partial right nephrectomy), hypertension and chronic back/neck pain (opioids dependent) was admitted with above-mentioned complaints. Some of the history was obtained from his at bedside. The patient complains of intermittent chest pain which he describes as pressure- like/stabbing, nonradiating and lasting for few minutes. The last time he had chest pain was at 4 PM prior to coming to the hospital. There were no alleviating or relieving factors. The pain was associated with shortness of breath, palpitations, diaphoresis and presyncope but no nausea or vomiting. And according to his , the patient has been having increased leg swelling for the last month or so (left more than right). He has two-pillow orthopnea, PND and his exercise tolerance is very limited by his shortness of breath. There was no report of any fever or chills but he has been complaining of nonproductive cough, no sick contact. The patient apparently follows with Dr. Bro of cardiology. He is scheduled to have an echocardiogram as outpatient for further evaluation of his worsening shortness of breath. He had a Holter monitor on 07/07/2016 assess PVCs. It only showed PACs/PVCs but no atrial tachycardia or A. fib. In the ED, his temperature was 98.4, heart rate 90 (up to 150s), respiratory rate 14, blood pressure 128/83 with oxygen saturation of 100% on 3 L nasal cannula. His WBC was 9.3 with hemoglobin of 15.3. His initial troponin was negative and his proBNP was 955. A CXR was done which showed vascular congestion. He also had a CAT scan of his neck which showed thyromegaly with no airway compromise. He received 40 mg oral Lasix 1, 15 mg IV Cardizem and he was started on Cardizem drip at 5 mg/h. Hospital Course Hospital Course: He was diuresed with IV Lasix, started on a Cardizem drip with improvement in his symptoms. He was seen in consultation by cardiology. He got an echocardiogram which had significant limitations due to his habitus, but grossly he had normal ejection fraction. He had an ultrasound of his thyroid which showed an enlarged nodule which is chronic. His TSH was 0.94. He underwent a 2 day stress test which was negative for acute ischemia. Medications were changed over to orals and adjusted for good rate control. He was started on Eliquis. He is now diuresed considerably, the swelling in his legs is resolved, he is back to his baseline 3 L per nasal cannula, so I think he can go home. Physical Exam Vital Signs: Temp Pulse Resp BP Pulse Ox 99.0 F 91 18 122/72 100 12/10/17 10:50 12/10/17 10:50 12/10/17 10:50 12/10/17 10:50 12/10/17 10:50 Intake & Output 12/09/17 12/10/17 12/11/17 06:59 06:59 06:59 Intake Total 1547 1080 Output Total 5123 7165 Balance -368 -3895 Weight 330 lb 11.094 oz General appearance: PRESENT: no acute distress, morbidly obese Respiratory exam: PRESENT: other - Very distant breath sounds Cardiovascular exam: PRESENT: other - Irregularly irregular GI/Abdominal exam: PRESENT: soft Rectal exam: PRESENT: normal inspection, other - Chronic distal stasis changes Extremities exam: PRESENT: other - Chronic woody edema, but no pitting Neurological exam: PRESENT: alert Psychiatric exam: PRESENT: appropriate affect Skin exam: PRESENT: warm Results Laboratory Results: 12/08/17 04:27 12/10/17 08:45 12/10/17 08:45 Sodium 140.7 Potassium 3.8 Chloride 91 L Carbon Dioxide 38 H Anion Gap 12 BUN 22 H Creatinine 0.97 Est GFR ( Amer) > 60 Est GFR (Non-Af Amer) > 60 Glucose 109 Calcium 10.2 Phosphorus 3.6 Magnesium 2.1 Albumin 4.9 12/06/17 12/06/17 12/06/17 03:30 12:25 18:31 Troponin I < 0.012 < 0.012 < 0.012 NT-Pro-B Natriuret Pep 12/07/17 12/10/17 08:10 08:45 Troponin I NT-Pro-B Natriuret Pep 431 H 303 H Impressions: Chest X-Ray 12/05/17 16:26 IMPRESSION: CARDIAC ENLARGEMENT. VASCULAR CONGESTION. Soft Tissue Neck CT 12/05/17 19:49 IMPRESSION: Enlarged thyroid gland. No evidence for airway compromise. Thyroid Ultrasound 12/06/17 00:00 IMPRESSION: There appears to be a nodule in the right lobe of the thyroid as described. This study is quite limited. Cervical Spine X-Ray 12/07/17 00:00 IMPRESSION: Postsurgical and degenerative changes as noted above Venous Doppler Study 12/07/17 00:00 IMPRESSION: NO EVIDENCE DVT OR SVT IN EITHER LEG. Qualifiers - * PATIENT BEING DISCHARGED WITH ANY OF THE FOLLOWING DIAGNOSIS: No
--- NOTE | 2017-12-10 17:32 | PDOC PROGRESS REPORT ---
Subjective Progress Note for:: 12/10/17 Subjective:: Nuclear stress test results were reviewed with the patient. Nuclear stress test was negative for any pharmacologic stress-induced ischemia. Patient heart rate still intermittently high. Patient also trying to get congested to the CPAP mask. Patient has ambulated in the hallway did fine. His heart rate was noted to be somewhat increased. Patient is being discharged by the hospitalist today. Patient was given my card. He could follow-up with me in the office. A 2D echocardiogram performed was reviewed. It was a technically difficult study but showed LVEF to be relatively well-preserved. RV was noted to be at least moderately enlarged. Reason For Visit: A FIB WITH RVR Physical Exam Vital Signs: Temp Pulse Resp BP Pulse Ox 99.0 F 91 18 122/72 100 12/10/17 10:50 12/10/17 10:50 12/10/17 10:50 12/10/17 10:50 12/10/17 10:50 Intake & Output 12/09/17 12/10/17 12/11/17 06:59 06:59 06:59 Intake Total 1547 1080 Output Total 1915 4975 Balance -368 -3895 Weight 150 kg Exam: GENERAL: well-nourished and in no acute distress. Alert and oriented x3 HEAD: Atraumatic, normocephalic. EYES: Pupils equal round and reactive to light, extraocular movements intact, sclera anicteric, conjunctiva are normal. ENT: TMs normal, nares patent, oropharynx clear without exudates. Moist mucous membranes. No oral ulcerations or bleeding gums noted NECK: supple without lymphadenopathy. Trachea is central. No cervical or axillary lymphadenopathy noted. Carotids are 2+, JVD WNL LUNGS: Respiration seems nonlabored, no significant accessory muscle action noted. Breath sounds clear to auscultation bilaterally and equal noted. No wheezes rales or rhonchi noted. No significant dullness noted on percussion. CHEST: Palpation of the chest wall shows no significant chest wall tenderness. HEART: [place] [employer], No PSH, 1/6 ANDRES aortic area, 1/6 jeffery systolic murmur mitral area, no rubs, no gallops. ABDOMEN: Soft, no significant tenderness appreciated, normoactive bowel sounds. No guarding, no rebound. No rigidity noted . No masses appreciated. EXTREMITIES: Pedal pulses are 1-2+, no calf tenderness noted. No clubbing or cyanosis. 1+ pedal edema noted NEUROLOGICAL: Focused neurological exam showed no significant neurologic deficit. Normal speech, no focal weakness appreciated. PSYCH: Normal mood, normal affect. Judgment and insight within normal limits. SKIN: No significant ecchymosis, skin is noted to be warm. MUSCULOSKELETAL EXAM: No significant acute joint swelling noted. Results Laboratory Results: 12/08/17 04:27 12/10/17 08:45 12/10/17 08:45 Sodium 140.7 Potassium 3.8 Chloride 91 L Carbon Dioxide 38 H Anion Gap 12 BUN 22 H Creatinine 0.97 Est GFR ( Amer) > 60 Est GFR (Non-Af Amer) > 60 Glucose 109 Calcium 10.2 Phosphorus 3.6 Magnesium 2.1 Albumin 4.9 12/06/17 12/06/17 12/06/17 03:30 12:25 18:31 Troponin I < 0.012 < 0.012 < 0.012 NT-Pro-B Natriuret Pep 12/07/17 12/10/17 08:10 08:45 Troponin I NT-Pro-B Natriuret Pep 431 H 303 H EKG Comments: Shows sinus rhythm without any sustained tachycardia or bradycardia. Impressions: Chest X-Ray 12/05/17 16:26 IMPRESSION: CARDIAC ENLARGEMENT. VASCULAR CONGESTION. Soft Tissue Neck CT 12/05/17 19:49 IMPRESSION: Enlarged thyroid gland. No evidence for airway compromise. Thyroid Ultrasound 12/06/17 00:00 IMPRESSION: There appears to be a nodule in the right lobe of the thyroid as described. This study is quite limited. Cervical Spine X-Ray 12/07/17 00:00 IMPRESSION: Postsurgical and degenerative changes as noted above Venous Doppler Study 12/07/17 00:00 IMPRESSION: NO EVIDENCE DVT OR SVT IN EITHER LEG. Assessment & Plan - Diagnosis (1) Acute CHF (congestive heart failure) Qualifiers: Heart failure type: unspecified Qualified Code(s): I50.9 - Heart failure, unspecified Is this a current diagnosis for this admission?: Yes (2) Atrial fibrillation with RVR Is this a current diagnosis for this admission?: Yes (3) Chronic respiratory failure Qualifiers: Respiratory failure complication: hypoxia and hypercapnia Qualified Code(s) : J96.11 - Chronic respiratory failure with hypoxia; J96.12 - Chronic respiratory failure with hypercapnia; J96.12 - Chronic respiratory failure with hypercapnia; J96.12 - Chronic respiratory failure with hypercapnia Is this a current diagnosis for this admission?: Yes (4) Dyslipidemia Is this a current diagnosis for this admission?: Yes (5) Morbid obesity Is this a current diagnosis for this admission?: Yes (6) Obstructive sleep apnea Is this a current diagnosis for this admission?: Yes - Notes Notes: Acute congestive heart failure: Most likely related to diastolic dysfunction and being precipitated by atrial fibrillation. Chest x-ray does show mild cardiomegaly. A 2D echocardiogram showed relatively well-preserved LVEF, RV is enlarged. RV dysfunction noted. CHF is felt to be relatively well controlled. CHF partly also from right heart failure. Patient should continue on p.o. diuretics. Patient can have further follow-up as an outpatient. Atrial fibrillation with rapid ventricular response: Heart rate seems better controlled on current regimen. Patient could be discharged on current medications. Patient currently on chronic anticoagulation. Chronic respiratory failure: Patient seems to have this based on obesity hypoventilation and also severe sleep apnea syndrome which patient claims he is not being treated. Continue with oxygen supplementation. Patient claims he has oxygen at home. Patient currently using his home CPAP. Patient may need a titration study. This can be performed through my office. Dyslipidemia: Recommend statin therapy with LDL goal of 70 or less. Morbid obesity: Patient will benefit from significant weight loss. Obstructive sleep apnea: Patient will greatly benefit from therapy for obstructive sleep apnea. Patient may be able to be desensitized while in hospital towards CPAP therapy. Patient claims some improvement versus desensitization while being in the hospital here. - Time Time with patient: Greater than 35 minutes - CODE STATUS was discussed, patient remains full code. Multiple medical problems were addressed. More than 50% of the time spent coordinating care, discussing management plans with involved caregivers. Management plans discussed with involved personnels. Medical decision making was of moderate to high complexity, patient's has multiple comorbidities. Medications reviewed and adjusted accordingly: Yes
== END 2017-12-10 11:25 | disposition home or self-care (01) | DRG 291 ==
LOC: ER 14:49 → EH 23:28 → 3N 12-06 18:46
PROVIDERS: ADMIT Internal Medicine Geriatric Medicine; ATTEND Internal Medicine Geriatric Medicine
PROC: 3E0F73Z Introduction of Anti-inflammatory into Respiratory Tract, Via Natural or Artificial Opening (ICD-10-PCS; 2017-12-06)
PROC: 5A09357 Assistance with Respiratory Ventilation, Less than 24 Consecutive Hours, Continuous Positive Airway Pressure (ICD-10-PCS; principal; 2017-12-08)
DX: I11.0 Hypertensive heart disease with heart failure (principal); J96.21 Acute and chronic respiratory failure with hypoxia; Z68.42 Body mass index [BMI] 45.0-49.9, adult; E66.2 Morbid (severe) obesity with alveolar hypoventilation; F11.20 Opioid dependence, uncomplicated; J96.12 Chronic respiratory failure with hypercapnia; I16.1 Hypertensive emergency; I50.33 Acute on chronic diastolic (congestive) heart failure; I48.0 Paroxysmal atrial fibrillation; M54.9 Dorsalgia, unspecified; M54.2 Cervicalgia; I50.813 Acute on chronic right heart failure; E78.5 Hyperlipidemia, unspecified; Z99.81 Dependence on supplemental oxygen; E11.9 Type 2 diabetes mellitus without complications; F32.9 Major depressive disorder, single episode, unspecified; J44.9 Chronic obstructive pulmonary disease, unspecified; G89.29 Other chronic pain; K59.09 Other constipation; E83.42 Hypomagnesemia; I27.20 Pulmonary hypertension, unspecified; E04.1 Nontoxic single thyroid nodule; E87.6 Hypokalemia; Z90.5 Acquired absence of kidney; Z82.49 Family history of ischemic heart disease and other diseases of the circulatory system; Z85.528 Personal history of other malignant neoplasm of kidney; Z88.6 Allergy status to analgesic agent; Z79.899 Other long term (current) drug therapy
CPT/HCPCS: 36415; 70490; 71046; 71275; 72050; 76536; 78452; 80048; 80053; 80061; 80069; 82803; 83735; 83880; 84100; 84439; 84443; 84481; 84484; 85025; 85027; 85379; 93005; 93010; 93017; 93306; 93970; 99285; A9500; J0280; J1644; J1940; J2550; J2785; J3475; J3490; J7030; J7060; Q9969

== ENCOUNTER 2018-05-02 17:12 | Emergency (ER) | payer BC, MEDICARE ==
--- NOTE | 2018-05-02 18:05 | ER Document Report ---
ED General - General Chief Complaint: Chest Pain Stated Complaint: CHEST PAIN Time Seen by Provider: 05/02/18 17:59 Notes: Patient is a 48-year-old male with atrial fibrillation on Xarelto that presents to the emergency department for chief complaint of chest pain and headache. Patient states that around 1 AM today, he had tripped over an oxygen bottle fell and struck the right side of his head, and had loss of consciousness for about 10 minutes, he is on Xarelto. He is complaining of a headache at this time, which he rates as a 6 out of 10 at this time describes as a throbbing type headache. He denies having any numbness, weakness or tingling in any extremities, denies any visual changes, or vomiting. He also complains of having chest pain since yesterday, it has been rather constant substernal pressure, with associated shortness of breath. He does have a history of atrial fibrillation, and hypertension. As well as heart failure. Denies history of stents or CABG. Past Medical History: A. fib, hypertension, COPD Past Surgical History: Back surgery, neck surgery Social History: Denies tobacco, alcohol or drug use. Family History: Reviewed and noncontributory for presenting illness Allergies: Reviewed, see documented allergy list. REVIEW OF SYSTEMS: Unless otherwise stated in this report the patient's positive and negative responses for review of systems for constitutional, eyes, ENT, cardiovascular, respiratory, gastrointestinal, neurological, genitourinary, musculoskeletal, and integumentary systems and related systems to the presenting problem are either as stated in the HPI or were not pertinent or were negative for the symptoms and/or complaints related to the presenting medical problem. PHYSICAL EXAMINATION: Vital signs reviewed, nursing noted reviewed. GENERAL: Obese male, in mild distress, complaining of headache HEAD: Superficial abrasions noted to the right side of the head, no depressed skull deformities, normocephalic. EYES: Eyes appear normal, extraocular movements intact, sclera anicteric, conjunctiva are normal. ENT: nares patent, oropharynx clear without exudates. Moist mucous membranes. NECK: Normal range of motion, supple without lymphadenopathy, no midline tenderness LUNGS: Breath sounds clear to auscultation bilaterally and equal. No wheezes rales or rhonchi. HEART: Regular rate and rhythm without murmurs ABDOMEN: Soft, obese, nontender, normoactive bowel sounds. No rebound, guarding , or rigidity. No masses appreciated. EXTREMITIES: Nontender, good range of motion, bilateral 1+ pitting edema to the mid tibias NEUROLOGICAL: No focal neurological deficits. Moves all extremities spontaneously Motor and sensory grossly intact on exam. PSYCH: Normal mood, normal affect. SKIN: Warm, Dry, normal turgor, no rashes or lesions noted on exposed skin TRAVEL OUTSIDE OF THE [place] IN LAST 30 DAYS: No - Related Data Allergies/Adverse Reactions: morphine [Morphine] Allergy (Verified 12/06/17 08:30) Past Medical History - Social History Smoking Status: Never Smoker Chew tobacco use (# tins/day): No Frequency of alcohol use: None Drug Abuse: None Family History: Hypertension Patient has suicidal ideation: No Patient has homicidal ideation: No - Past Medical History Cardiac Medical History: Reports: Hx Hypercholesterolemia, Hx Hypertension Pulmonary Medical History: Reports: Hx COPD - On 3 L home oxygen., Hx Sleep Apnea - To tolerate CPAP. Neurological Medical History: Reports: Hx Migraine. Denies: Hx Seizures Endocrine Medical History: Reports: Hx Diabetes Mellitus Type 2 Renal/ Medical History: Denies: Hx Peritoneal Dialysis Malignancy Medical History: Reports Hx Renal (Kidney) Cancer Psychiatric Medical History: Reports: Hx Depression Past Surgical History: Reports: Hx Abdominal Surgery, Hx Kidney (Renal Surgery) - right nephrectomy 2011, Hx Orthopedic Surgery - cervical surgery x1, thoracic and lumbar fusions x3., Other - Right partial nephrectomy (cancer). - Immunizations Hx Diphtheria, Pertussis, Tetanus Vaccination: Yes Physical Exam - Vital signs Vitals: Temp Pulse Resp BP Pulse Ox 98.4 F 100 16 80/40 L 100 05/02/18 17:24 05/02/18 17:24 05/02/18 17:24 05/02/18 17:24 05/02/18 17:24 Course - Re-evaluation Re-evalutation: Patient seen and examined vital signs reviewed. Laboratory data and imaging were ordered as appropriate for the patient's presenting symptoms and complaint, with consideration of any critical or life threatening conditions that may be associated with their obtained history and exam as noted above. Patient was treated with IV fluids, Tylenol for his headache, initially the patient was hypotensive, but responded well to fluids Results were reviewed when available and demonstrated elevated troponin, consistent with an end STEMI, in the setting of chest pain, EKG changes as described, patient was started on nitroglycerin infusion, which did resolve his chest pain, I placed a call to [facility], for transfer, pending callback, currently the fellow is involved in a NSTEMI case, and will need to call back, at this time the patient did receive aspirin, but with holding heparin at this time given that the patient is on Xarelto and had a head injury, he is fully anticoagulated, and I feel that giving him heparin at this time would not be indicated, will discuss further when on the phone with the interventional pricing coordinator. Patient was also noted to have an acute kidney injury based on prior labs from earlier this year, marked elevation in creatinine, for this reason the patient would not be eligible for our current NSTEMI evaluation at this facility. The patient was re-evaluated and was improved, stable Evaluation was most consistent with an NSTEMI, closed head injury on Xarelto, headache Patient was reevaluated again, his second troponin was down trending, he was still complaining of a headache, after Tylenol, will order Reglan, and Benadryl to see if this will help his headache, his CT was reviewed and was negative for any acute intracranial abnormality. Discussed case with the on-call fellow [facility], who accepted the patient under their service, they would like the patient to be weaned off of the nitroglycerin drip, which she will attempt to do, he currently does have improvement, and resolution of his chest pain while on it. Results were discussed with the patient at this point after careful consideration I feel that that patient should be transferred to [facility] due to an STEMI with acute kidney injury. Case discussed with Dr. Huizar the interventional fellow, who accepted to Dr. Eliza Kim her attending physician. This was discussed with the patient that it is in the best interest for their care to be transferred, the risks and benefits of transfer were discussed, including but not limited to clinical deterioration during transport , respiratory distress, and potential for traumatic injuries. Patient agreed with this plan of care. *Note is created using voice recognition software and may contain spelling, syntax or grammatical errors. Laboratory 05/02/18 05/02/18 05/02/18 17:40 17:40 17:40 WBC 14.0 H RBC 5.04 Hgb 16.1 Hct 46.7 MCV 93 MCH 31.9 MCHC 34.4 RDW 14.0 Plt Count 169 Seg Neutrophils % 82.3 H Lymphocytes % 9.0 L Monocytes % 8.3 Eosinophils % 0.3 Basophils % 0.1 Absolute Neutrophils 11.5 H Absolute Lymphocytes 1.3 Absolute Monocytes 1.2 Absolute Eosinophils 0.0 Absolute Basophils 0.0 PT 14.3 INR 1.05 Sodium 138.1 Potassium 3.4 L Chloride 96 L Carbon Dioxide 25 Anion Gap 17 BUN 42 H Creatinine 3.86 H Est GFR ( Amer) 20 L Est GFR (Non-Af Amer) 17 L Glucose 119 H Calcium 9.4 Total Bilirubin 2.1 H Direct Bilirubin 1.0 H Neonat Total Bilirubin Not Reportable Neonat Direct Bilirubin Not Reportable Neonat Indirect Bili Not Reportable AST 31 ALT 23 Alkaline Phosphatase 58 Creatine Kinase 229 H CK-MB (CK-2) Troponin I Total Protein 7.8 Albumin 4.4 05/02/18 17:40 WBC RBC Hgb Hct MCV MCH MCHC RDW Plt Count Seg Neutrophils % Lymphocytes % Monocytes % Eosinophils % Basophils % Absolute Neutrophils Absolute Lymphocytes Absolute Monocytes Absolute Eosinophils Absolute Basophils PT INR Sodium Potassium Chloride Carbon Dioxide Anion Gap BUN Creatinine Est GFR ( Amer) Est GFR (Non-Af Amer) Glucose Calcium Total Bilirubin Direct Bilirubin Neonat Total Bilirubin Neonat Direct Bilirubin Neonat Indirect Bili AST ALT Alkaline Phosphatase Creatine Kinase CK-MB (CK-2) 1.58 Troponin I 1.990 Total Protein Albumin Chest X-Ray 05/02/18 17:50 IMPRESSION: NO ACUTE RADIOGRAPHIC FINDING IN THE CHEST. Head CT 05/02/18 17:50 IMPRESSION: NORMAL BRAIN CT WITHOUT CONTRAST. EVIDENCE OF ACUTE STROKE: NO. - Vital Signs Vital signs: Temp Pulse Resp BP Pulse Ox 98.4 F 100 16 106/57 L 95 05/02/18 17:24 05/02/18 17:24 05/02/18 23:16 05/02/18 23:16 05/02/18 23:16 - Laboratory Result Diagrams: 05/02/18 17:40 05/02/18 17:40 Laboratory results interpreted by me: 05/02/18 05/02/18 17:40 17:40 WBC 14.0 H Seg Neutrophils % 82.3 H Lymphocytes % 9.0 L Absolute Neutrophils 11.5 H Potassium 3.4 L Chloride 96 L BUN 42 H Creatinine 3.86 H Est GFR ( Amer) 20 L Est GFR (Non-Af Amer) 17 L Glucose 119 H Total Bilirubin 2.1 H Direct Bilirubin 1.0 H Creatine Kinase 229 H - EKG Interpretation by Me Additional EKG results interpreted by me: 05/02/18 18:03 EKG demonstrates sinus tachycardia with a ventricular rate of 103 bpm, left axis deviation, QTC 482 ms, noted are ST depressions in leads I, II, V4 and V5 and V6. ST depression in lead aVL this is compared with prior EKG from 2017, where these changes were not noted. Significant change noted. Critical Care Note - Critical Care Note Total time excluding time spent on procedures (mins): 50 Comments: Critical care time 50 minutes exclusive from separate billable procedures for a patient requiring complex medical decision making, and high potential for clinical deterioration. In a patient with an end STEMI, closed head injury on full anticoagulation. Time spent obtaining history from patient or surrogate, discussions with consultants, development of treatment plan with patient or surrogate, evaluation of patient's response to treatment, examination of patient , ordering and performing treatments and interventions, ordering and review of laboratory studies, re-evaluation of patient's condition, ordering and review of radiographic studies and review of old charts Discharge - Discharge Clinical Impression: NSTEMI (non-ST elevated myocardial infarction), ARVIN (acute kidney injury), Transient hypotension Closed head injury Qualifiers: Encounter type: initial encounter Qualified Code(s): S09.90XA - Unspecified injury of head, initial encounter Cephalgia Qualifiers: Headache type: unspecified Headache chronicity pattern: acute headache Intractability: not intractable Qualified Code(s): R51 - Headache Condition: Serious Disposition: [place] Referrals: CARSON SINGER MD [Primary Care Provider] - Follow up as needed
[2018-05-02] MEDS ORDERED: NORMAL SALINE 1000 ML 1,000 ML IV ONE ×2 (18:06→23:43)
[2018-05-02 18:32] LABS: ABSOLUTE LYMPHOCYTES (AUTO) 1.3 10^3/uL (0.5-4.7); ABSOLUTE MONOCYTES (AUTO) 1.2 10^3/uL (0.1-1.4); ABSOLUTE NEUT (AUTO) 11.5 10^3/uL (1.7-8.2); BASOPHILS % (AUTO) 0.1 % (0-2); EOSINOPHILS % (AUTO) 0.3 % (0-6); HEMATOCRIT 46.7 % (37.9-51.0); HEMOGLOBIN 16.1 g/dL (13.5-17.0); INTERNATIONAL RATION (INR) 1.05; MEAN CORPUSCULAR HEMOGLOBIN 31.9 pg (27.0-33.4); MEAN CORPUSCULAR HGB CONC 34.4 g/dL (32.0-36.0); MEAN CORPUSCULAR VOLUME 93 fl (80-97); MONOCYTES % (AUTO) 8.3 % (3-13); PLATELET COUNT 169 10^3/uL (150-450); PROTHROMBIN TIME 14.3 SEC (11.4-15.4); RED BLOOD COUNT 5.04 10^6/uL (4.35-5.55); SEGMENTED NEUTROPHILS % (AUTO) 82.3 % (42-78); TOTAL CELLS COUNTED % (AUTO) 100 %
[2018-05-02 18:36] LABS: ALANINE AMINOTRANSFERASE 23 U/L (21-72); ALBUMIN 4.4 g/dL (3.5-5.0); ALKALINE PHOSPHATASE 58 U/L (38-126); ANION GAP 17 (5-19); ASPARTATE AMINO TRANSFERASE 31 U/L (17-59); BILIRUBIN,TOTAL 2.1 mg/dL (0.2-1.3); BLOOD UREA NITROGEN 42 mg/dL (7-20); CALCIUM 9.4 mg/dL (8.4-10.2); CARBON DIOXIDE 25 mmol/L (22-30); CHLORIDE 96 mmol/L (98-107); CREATINE KINASE 229 U/L (55-170); GLUCOSE 119 mg/dL (75-110); POTASSIUM 3.4 mmol/L (3.6-5.0); SODIUM 138.1 mmol/L (137-145); TOTAL PROTEIN 7.8 g/dL (6.3-8.2)
[2018-05-02 18:48] LABS: CREATINE KINASE MB 1.58 ng/mL (<4.55)
[2018-05-02 18:49] LABS: TROPONIN I 1.99 ng/mL
--- NOTE | 2018-05-02 19:02 | RADIOLOGY REPORT (SQ) ---
EXAM DESCRIPTION: CT HEAD WITHOUT COMPLETED DATE/TIME: 05/02/2018 6:49 pm REASON FOR STUDY: fall COMPARISON: 04/29/2015. TECHNIQUE: Axial images acquired through the brain without intravenous contrast. Images reviewed wi th bone, brain and subdural windows. Additional sagittal and coronal reconstructions were generated. Images stored on PACS. All CT scanners at this facility use dose modulation, iterative reconstruction, and/or weight based d osing when appropriate to reduce radiation dose to as low as reasonably achievable (ALARA). [facility]: Dose Right [facility]: CareDose [facility]: Dose Right [facility]: Teradose 4D [facility]: [employer] RADIATION DOSE: CT Rad equipment meets quality standard of care and radiation dose reduction techniq ues were employed. CTDIvol: 53.2 mGy. DLP: 1070 mGy-cm. mGy. LIMITATIONS: None. FINDINGS: VENTRICLES: Normal size and contour. CEREBRUM: No masses. No hemorrhage. No midline shift. No evidence for acute infarction. Normal gra y/white matter differentiation. No areas of low density in the white matter. CEREBELLUM: No masses. No hemorrhage. No alteration of density. No evidence for acute infarction. EXTRAAXIAL SPACES: No fluid collections. No masses. ORBITS AND GLOBE: No intra- or extraconal masses. Normal contour of globe without masses. CALVARIUM: No fracture. PARANASAL SINUSES: No fluid or mucosal thickening. SOFT TISSUES: No mass or hematoma. OTHER: No other significant finding. IMPRESSION: NORMAL BRAIN CT WITHOUT CONTRAST. EVIDENCE OF ACUTE STROKE: NO. COMMENT: Quality ID # [id number]: Final reports with documentation of one or more dose reduction techniques (e.g., Automated exposure control, adjustment of the mA and/or kV according to patient size, use of iterative reconstruction technique) TECHNICAL DOCUMENTATION: JOB ID: [id number] [email or web address]- All Rights Reserved Reading location - IP/workstation name: [email or web address]
--- NOTE | 2018-05-02 19:30 | RADIOLOGY REPORT (SQ) ---
EXAM DESCRIPTION: CHEST SINGLE VIEW COMPLETED DATE/TIME: 05/02/2018 7:15 pm REASON FOR STUDY: cp COMPARISON: 12/05/2017 EXAM PARAMETERS: NUMBER OF VIEWS: One view. TECHNIQUE: Single frontal radiographic view of the chest acquired. RADIATION DOSE: NA LIMITATIONS: None. FINDINGS: LUNGS AND PLEURA: No opacities, masses or pneumothorax. No pleural effusion. MEDIASTINUM AND HILAR STRUCTURES: No masses. Contour normal. HEART AND VASCULAR STRUCTURES: Heart normal in size. Normal vasculature. BONES: No acute findings. HARDWARE: None in the chest. OTHER: No other significant finding. IMPRESSION: NO ACUTE RADIOGRAPHIC FINDING IN THE CHEST. TECHNICAL DOCUMENTATION: JOB ID: [id number] [email or web address]- All Rights Reserved Reading location - IP/workstation name: [email or web address]
[2018-05-02] MEDS ORDERED: NITROGLYCERIN/D5W 50 MG/250 ML RTUINJ IV PRN (19:42)
[2018-05-02] MEDS ORDERED: ACETAMINOPHEN 325 MG TABLET PO ONE (21:43)
[2018-05-02] MEDS ORDERED: HEPARIN SODIUM,PORCINE/D5W 250 ML IV PRN (22:50)
[2018-05-02] MEDS ORDERED: HEPARIN SOD (PORCINE) 1,000 UNIT/ML 10 ML VIAL IV ONE (22:50)
[2018-05-02] MEDS ORDERED: POTASSIUM CHLORIDE 10 MEQ CAPSULE.ER PO ONE (23:30)
--- NOTE | 2018-05-02 23:30 | EKG REPORT ---
SEVERITY:- ABNORMAL ECG - SINUS TACHYCARDIA PROBABLE LEFT ATRIAL ABNORMALITY PROBABLE LVH WITH SECONDARY REPOL ABNRM BORDERLINE PROLONGED QT INTERVAL : Confirmed by: Raisa Chun MD 02-May-2018 23:30:08
[2018-05-02] MEDS ORDERED: METOCLOPRAMIDE HCL INJ/PF 10 MG/2 ML SDV IV ONE (23:41)
[2018-05-02] MEDS ORDERED: DIPHENHYDRAMINE HCL 50 MG/ML VIAL IV ONE (23:41)
[2018-05-03] MEDS ORDERED: ACETAMINOPHEN 325 MG TABLET PO ONE (04:18)
--- NOTE | 2018-05-03 05:14 | ER Document Report ---
Doctor's Note Notes: 05/03/18 05:13 Patient without really any new complaints still is complaining of some headache though his chest feels better overall. Blood pressure currently 171/83. Heart is regular and lungs are clear.
[2018-05-03 05:37] VITALS: BP 177/82
== END 2018-05-03 05:35 | disposition short-term general hospital (02) ==
LOC: ER 17:12
DX: I21.4 Non-ST elevation (NSTEMI) myocardial infarction (principal); N17.9 Acute kidney failure, unspecified; S06.9X9A Unspecified intracranial injury with loss of consciousness of unspecified duration, initial encounter; R51 Headache; W01.0XXA Fall on same level from slipping, tripping and stumbling without subsequent striking against object, initial encounter; I48.91 Unspecified atrial fibrillation; Z79.01 Long term (current) use of anticoagulants; I95.9 Hypotension, unspecified; R07.89 Other chest pain; E11.9 Type 2 diabetes mellitus without complications; I10 Essential (primary) hypertension; R60.0 Localized edema; E66.9 Obesity, unspecified; Z68.42 Body mass index [BMI] 45.0-49.9, adult; J44.9 Chronic obstructive pulmonary disease, unspecified; Z99.81 Dependence on supplemental oxygen; Z88.5 Allergy status to narcotic agent; Z85.528 Personal history of other malignant neoplasm of kidney; Z90.5 Acquired absence of kidney
CPT/HCPCS: 93005; 99285; 96361; 96375; 96365; 96366; 36415; 82553; 82550; 85025; 85610; 85730; 80053; 84484; 71045; 70450; 93010; J1200; J2765; J3490